=== PATIENT | male | born 1960 | race Two or more races ===

== ENCOUNTER → 2021-11-16 14:40 | Outpatient (BNVA) | payer OTHER, SELFPAY | PROVIDERS: Visit Provider Internal Medicine | DX: M25.462 Effusion, left knee (principal) | CPT/HCPCS: 99202 ==

== ENCOUNTER → 2021-12-19 10:35 | Outpatient (BNVA) | payer OTHER, SELFPAY | PROVIDERS: Visit Provider Internal Medicine | DX: M25.462 Effusion, left knee (principal) | CPT/HCPCS: 99212 ==

== ENCOUNTER 2025-02-18 12:45 | Outpatient (REF) | payer MEDICAID, SELFPAY ==
[2025-02-18 14:03] LABS: Hematocrit 38.8 % (42.0-52.0); Hemoglobin 12.8 g/dl (14.0-18.0); Mean Corpuscular Hemoglobin 28.6 pg (27.0-33.0); Mean Corpuscular Volume 86.6 fL (80.0-98.0); Mean Platelet Volume 9.9 fL (9.4-12.4); Platelet Count 158 X10*3/uL (160-400); Red Blood Count 4.48 X10*6/uL (4.60-5.80); Red Cell Distribution Width 16.4 % (11.0-16.0); White Blood Count 6.5 X10*3/uL (4.8-10.8)
[2025-02-18 14:51] LABS: Alanine Aminotransferase 21 U/L (0-40); Albumin Level 4.3 g/dL (3.5-5.0); Alkaline Phosphatase 88 U/L (39-117); Anion Gap 11 (12-20); Aspartate Amino Transferase 17 U/L (5-37); Bilirubin Total 0.5 mg/dL (0.0-1.0); Blood Urea Nitrogen 12 mg/dL (9-16); Calcium 9.4 mg/dL (8.4-10.2); Carbon Dioxide 27 mmol/L (22-29); Chloride 107 mmol/L (96-108); Estimated Glomerular Filt Rate 59; Glucose Random 259 mg/dL (60-115); Iron 36 mcg/dL (45-160); Percent Iron Saturation 12 % (15-50); Potassium 4.6 mmol/L (3.3-5.1); Sodium 140 mmol/L (135-145); Total Iron Binding Capacity 301 mcg/dL (228-428); Total Protein 7.4 g/dL (6.5-8.0); Unsaturated Iron Binding 265 ug/dL
[2025-02-18 14:56] LABS: Ferritin 5 ng/mL (20-250)
[2025-02-18 15:04] LABS: Folate 14.9 ng/mL (> or = 4.0); Vitamin B12 262 pg/mL (200-900)
== END 2025-02-18 12:46 | disposition home or self-care (01) ==
LOC: HO.LAB 12:45
PROVIDERS: PCP Physician Assistant; Visit Provider Internal Medicine
DX: D64.9 Anemia, unspecified (principal); R10.9 Unspecified abdominal pain; C25.9 Malignant neoplasm of pancreas, unspecified; C78.7 Secondary malignant neoplasm of liver and intrahepatic bile duct
CPT/HCPCS: 36415; 80053; 82607; 82728; 82746; 83540; 85027; 99202

== ENCOUNTER 2025-02-18 12:45 | Outpatient (AMB) | payer MEDICAID, SELFPAY ==
--- NOTE | 2025-02-18 12:52 | A.OFFVIS_ITS ---
Vital Signs 02/18/25 12:58 Height 5 ft 6 in Weight 123 lb 7.342 oz BMI 19.9 BP 109/77 Blood Pressure Location Lt brachial Position Sitting Pulse 86 Intake Visit Reasons: Pancreas Cancer r/s 02/02/25 Intake Note: Dylon presents in the office as a new patient for Pancreatic Cancer. CC: He states that he is having pains in the stomach. Denies other GI symptoms. Pains in the middle of the abdomen. Building Equipment Operator Required: Yes Building Equipment Operator Name: [id number] Allergies No Known Allergies Allergy (Verified 02/18/25 13:01) Medication List - Last Reconciled 02/18/25 by Geneva Bell MD allopurinol 100 mg PO DAILY atorvastatin 20 mg PO BEDTIME buspirone 10 mg PO BID doxycycline monohydrate 100 mg PO BID 30 days glipizide ER 10 mg PO QAM hydrochlorothiazide 25 mg PO Q OTHER DAY lisinopril 40 mg PO DAILY naltrexone 50 mg PO QAM nifedipine ER 30 mg PO DAILY olmesartan 20 mg PO QAM omeprazole 40 mg PO DAILY sitagliptin phosphate (Januvia) 100 mg PO QAM thiamine mononitrate (vit B1) mg PO HPI Comments Details: 64 y.o M with PMH of metastatic pancreatic ca 12/[address] Case, who has been referred to our office of abd pain and melena. Pt reports burning abd pain that started almost 2 months ago. Intermittent. Not related to food but does note decreased appetite. No N/V. No diarrhea. Stools dark but unsure if from PO iron. Labs reviewed with mild anemia and iron deficiency - ferritin of 4. [place] 07/2024 (Dr Golden) Good prep. 5 mm cecal polyp. Diverticulosis. States the reason to seek referral here was he was not able to get an early date for EGD at [facility]. Labs and imaging reviewed. Also has likely metastatic liver lesions as well as mild CBD obstruction from mass effect. LFTs normal 01/2025. Pt says is switching therapy and will be re-imaged in 2 months - plan for procedure if size of lesion/mass effect not improved. He is also being seen at [facility] and [facility] as second opinion for panc adenoca. [facility] Medical History Gout Hypertension Swelling of knee joint, left Review of Systems Const All systems reviewed & are unremarkable except as noted in HPI and below Physical Exam Vital Signs: Last Vital Signs Pulse 86 02/18/25 12:58 BP 109/77 02/18/25 12:58 BMI result Body Mass Index 19.9 No apparent distress, undernourished Nonicteric Abdomen soft, nondistended Alert and oriented x3, normal gait Flat effect Assessment & Plan Assessment & Plan (1) Abdominal pain: Code(s): R10.9 - Unspecified abdominal pain Category: Medical (2) Anemia: Code(s): D64.9 - Anemia, unspecified Category: Medical (3) Pancreatic adenocarcinoma: Code(s): C25.9 - Malignant neoplasm of pancreas, unspecified Category: Medical (4) Metastasis to liver: Code(s): C78.7 - Secondary malignant neoplasm of liver and intrahepatic bile duct Category: Medical Plan Ddx include PUD, gastritis, duodenitis, AVMs. Omeprazole on med list but pt has not been taking this. Madbury done < 6 months ago without any pathology. Plan: - Reviewed use of omeprazole daily - Updated CBC. Will also check LFTs to r/o obstruction - EGD to be booked Follow up after egd Orders: Orders Complete Blood Count no Diff Today D64.9 - Anemia, unspecified Comprehensive Met. Panel Today D64.9 - Anemia, unspecified Coding Level of Care Code New Pt Level 4 (30726) Diagnoses Abdominal pain R10.9 Anemia D64.9 Pancreatic adenocarcinoma C25.9 Metastasis to liver C78.7
[2025-02-18 12:58] VITALS: BP 109/77; PULSE 86; BMI 19.9
--- OUTSIDE RECORDS SUMMARY | 2025-02-18 15:06 | XMS_ITS | Encounter Summary ---
Author Organization [employer] [facility] Address [address] [place] [address] [address] [place] [address] Care Team Providers Care Environmental Aide Name Role Phone Unavailable Primary Care Provider Unavailabl e Encounter Details Date Type Department Care Team (Latest Contact Info) Description 06/15/2019 Abstract [facility] CONVERSIONS Dental, Provider, DDS Social History Tobacco Use Types Packs/Day Years Used Date Smoking Tobacco: Never Assessed Sex and Gender Information Value Date Recorded Sex Assigned at Male 09/30/2022 10:23 AM EDT Legal Sex Male 10:23 AM EDT Gender Identity Male 09/30/2022 10:23 AM EDT Sexual Orientation Choose not to disclose 2021 10:23 AM EDT documented as of this encounter Plan of Treatment Not on file documented as of this encounter Visit Diagnoses Not on filedocumented in this encounter
--- OUTSIDE RECORDS SUMMARY | 2025-02-18 15:06 | XMS_ITS | Encounter Summary ---
Author Organization [facility] Address [address] [place] [address] Care Team Providers Care Back Gray Cloth Washer Name Role Phone Deneen Beltran PA-C Primary Care Provider [phone] Reason for Visit * Reason Comments Care Coordination [id number] Visit Encounter Details Date Type Department Care Team ([facility] Contact Info) Description 04/29/2024 Interim Notes Caring [facility] [address] [place] [phone] Katherine Falk [address] [place] [address] Social History Tobacco Use Types Packs/Day Years Used Date Smoking Tobacco: Former Smokeless Tobacco: Never Alcohol Use Standard Drinks/Week Comments Yes 6 (1 standard drink = 0.6 oz pur e alcohol) beer only. daily about 5-6 Social Connections Answer Date Recorded Connectedness 1 04/30/2024 Financial Resource Strain Answer Date R ecorded Financial Resource Strain 1 2023 Stress Answer Date Recorded Stress 1 04/30/2024 Physical Activity Answer Date Recorded Physical Activity 0 07/24/2019 Food Insecurity Answer Date Recorded Food 1 04/30/2024 Transportation Needs Answer Date Record ed Transportation 1 04/30/2024 Housing Stability Answer Date Recorded Housing 1 04/30/2024 Safety and Environment Answer Date Richy rded Safety 0 07/24/2019 Utilities Answer Date Recorded Utilities 1 04/30/2024 Employment Answer Date Recorded Stress 0 02/18/2022 Sex and Gender Information Value Date Recorded Sex Assigned at Male 09/11/2017 1:35 PM PDT Legal Sex Male 11:36 AM PDT Gender Identity Male 09/11/2017 1:35 PM PDT Sexual Orientation Straight 09/11/2017 1: 35 PM PDT COVID-19 Exposure Response Date Recorded In the last 10 days, have yo u been in contact with someone who was confirmed or suspected to have Coronavirus/COVID-19? No / Unsure 04/29/2024 2:31 PM EDT documented as of this encounter Plan of Treatment Upcoming Encounters Date Type Department Care Team (Late st Contact Info) Description 03/23/2025 2:40 PM EDT Office Visit [facility] [address] [place] [address] Baron Ling, PharmD [address] [place] [address] 04/19/2025 1:40 PM EDT Office Visit [facility] [address] Dental [address] [place] [phone] Damien Guadalupe, RD [address] [place] [address] documented as of this encounter Goals Goal Patient Goal Type Associated Problems Recent Progress Patient-Stated? Author Blood Pressure < 130/80 Blood Pressure 100/70(2024 2:43 PM EST) No Baron Ling PharmD Exercise 3x per week (30 min per time) Exercise Not on track( 023 1:08 PM PDT) No Baron Ling PharmD Hypertension: Check BP regularly (@home or in office) General On track( 023 1:08 PM PDT) No Baron Ling PharmD Note: 3x/week documented as of this encounter Visit Diagnoses Not on filedocumented in this encounter Additional Health Concerns Assessment Noted Time PHQ-9 Depression Total Score: 0 01/28/20 24 2:59 PM PST documented as of this encounter Care Teams Back Gray Cloth Washer Relationship Specialty Start Date End Date Deneen Beltran PA-C [address] [place] [address] PCP - General Internal Medicine 11/03/23 documented as of this encounter
--- OUTSIDE RECORDS SUMMARY | 2025-02-18 15:06 | XMS_ITS | Clinical Summary ---
Author Organization [employer] [facility] Address [address] [place] [address] 7 [place] [address] Care Team Providers Care Personal Carer Name Role Phone Unavailable Primary Care Provider Unavailabl e Social History Tobacco Use Types Packs/Day Years Used Date Smoking Tobacco: Never Assessed Sex and Gender Information Value Date Recorded Sex Assigned at Male 09/30/2022 10:23 AM EDT Legal Sex Male 10:23 AM EDT Gender Identity Male 09/30/2022 10:23 AM EDT Sexual Orientation Choose not to disclose 2021 10:23 AM EDT Last Filed Vital Signs Vital Sign Reading Time Taken Comments Blood Pressure 118/65 12/23/2019 12:01 AM EST Pulse 70 12/23/2019 12:01 AM EST Temperature - - Respiratory Rate - - Oxygen Saturation - - Inhaled Oxygen Concentration - - Weight - - Height - - Body Mass Index - - Plan of Treatment Health Maintenance Due Date Last Done Comments CT Colonography 1962 Colonoscopy 1962 Colorectal Cancer Screening 1962 Depression Screening 1962 FIT DNA/Cologuard 1962 FIT 1962 FOBT 1962 Lipid Panel 1962 Sigmoidoscopy 1962 Alcohol/Substance Use Screening 1974 Tobacco Screening 1974 DTaP/Tdap/Td Vaccines (1 - Tdap) 1981 Pneumococcal Vaccine: 50+ Ye ars (1 of 1 - PCV) 2012 Zoster Vaccines (1 of 2) 2012 COVID-19 Vaccine ( - 2023-2 5 season) 2024 Influenza Vaccine (#1) 2024 RSV Patients and Pa tients Aged 60 years or older (1 - 1-dose 75+ series) 2037 HIB Vaccines Aged Out No longer eligi ble based on patient's age to complete this topic HPV Vaccines Aged Out No longer eligi ble based on patient's age to complete this topic Hepatitis A Vaccines Aged Out No long er eligible based on patient's age to complete this topic Hepatitis B Vaccines Aged Out No long er eligible based on patient's age to complete this topic IPV Vaccines Aged Out No longer eligi ble based on patient's age to complete this topic Meningococcal Vaccine Aged Out No jovanna edmond eligible based on patient's age to complete this topic Pneumococcal Vaccine: Pediat rics (0 to 5 Years) and At-Risk Patients (6 to 49) Years) Aged Out No longer eligible b ased on patient's age to complete this topic RSV under 20 months Aged Out No longe r eligible based on patient's age to complete this topic Rotavirus Vaccines Aged Out No longer eligible based on patient's age to complete this topic
--- OUTSIDE RECORDS SUMMARY | 2025-02-18 15:06 | XMS_ITS | Encounter Summary ---
Author Organization [facility] Address [address] [place] [address] Care Team Providers Care Oleo Hasher And Renderer Name Role Phone Deneen Beltran PA-C Primary Care Provid er Encounter Details Date Type Department Care Team Description 08/20/2024 Social Work [facility] Oncology Services [address] [place] [address] Shaylee Perez [facility] Social History Tobacco Use Types Packs/Day Years Used Date Smoking Tobacco: Never Smokeless Tobacco: Never Alcohol Use Standard Drinks/Week Comments Never 0 (1 standard drink = 0.6 oz pur e alcohol) Sex and Gender Information Value Date Recorded Sex Assigned at Male 04/06/2024 10:23 AM EDT Gender Identity Not on file Sexual Orientation Not on file Job Start Date Occupation Industry Not on file Not on file Not on file documented as of this encounter Plan of Treatment Not on file documented as of this encounter Visit Diagnoses Not on filedocumented in this encounter Care Teams Oleo Hasher And Renderer Relationship Specialty Start Date End Date Deneen Beltran PA-C [address] [place] [phone] PCP - General Physician Seaming Machine Operator 12/17/23 documented as of this encounter
--- OUTSIDE RECORDS SUMMARY | 2025-02-18 15:06 | XMS_ITS | Encounter Summary ---
Author Organization [facility] Address [address] [place] [address] Care Team Providers Care Bench Worker Apprentice Name Role Phone Deneen Beltran PA-C Primary Care Provider + [phone] Reason for Visit * Reason Comments Medication Issues Encounter Details Date Type Department Care Team ([facility] st Contact Info) Description 03/17/2020 Interim Notes [address] [phone] [address] Social History Tobacco Use Types Packs/Day Years Used Date Smoking Tobacco: Former Smokeless Tobacco: Never Alcohol Use Standard Drinks/Week Comments Yes 6 (1 standard drink = 0.6 oz pur e alcohol) beer only. daily about 5-6 Social Connections Answer Date Recorded Social Connections and Isolation 0 07/24/2019 Financial Resource Strain Answer Date R ecorded Financial Resource Strain 0 2018 Stress Answer Date Recorded Stress 0 07/24/2019 Physical Activity Answer Date Recorded Physical Activity 0 07/24/2019 Food Insecurity Answer Date Recorded Food 0 07/24/2019 Transportation Needs Answer Date Record ed Transportation 0 07/24/2019 Housing Stability Answer Date Recorded Housing 0 07/24/2019 Safety and Environment Answer Date Richy rded Safety 0 07/24/2019 Utilities Answer Date Recorded Utilities 0 07/24/2019 Employment Answer Date Recorded Employment 0 07/24/2019 Sex and Gender Information Value Date Recorded Sex Assigned at Male 09/11/2017 1:35 PM PDT Legal Sex Male 11:36 AM PDT Gender Identity Male 09/11/2017 1:35 PM PDT Sexual Orientation Straight 09/11/2017 1: 35 PM PDT documented as of this encounter Plan of Treatment Upcoming Encounters Date Type Department Care Team (Late st Contact Info) Description 03/23/2025 2:40 PM EDT Office Visit [facility] [address] [place] [address] Baron Ling PharmD [address] [place] [address] 04/19/2025 1:40 PM EDT Office Visit [facility] [address] Dental [address] [place] [phone] Damien Guadalupe, RD [address] [place] [address] documented as of this encounter Visit Diagnoses Not on filedocumented in this encounter Care Teams Bench Worker Apprentice Relationship Specialty Start Date End Date Deneen Beltran PA-C [address] [place] [address] PCP - General Internal Medicine 11/03/23 documented as of this encounter
--- OUTSIDE RECORDS SUMMARY | 2025-02-18 15:06 | XMS_ITS | Encounter Summary ---
Author Organization [facility] Address [address] [place] [address] Care Team Providers Care Plastics Seasoner Operator Name Role Phone Deneen Beltran PA-C Primary Care Provider + [phone] Reason for Visit * Reason Comments Follow Up Encounter Details Date Type Department Care Team ([facility] st Contact Info) Description 02/02/2025 2:40 PM EST Office Visit [facility] [address] [place] [address] Deneen Beltran PA-C [address] [place] [address] Type 2 diabetes mellitus with hyperglycemia, with long-term current use of insulin (HCC-CMS) (Primary Dx); Essential hypertension; Elevated liver enzymes; Malignant neoplasm of pancreas, unspecified location of malignancy (HCC-CMS) Social History Tobacco Use Types Packs/Day Years Used Date Smoking Tobacco: Former Smokeless Tobacco: Never Tobacco Cessation:Counseling Given: Not Answered Alcohol Use Standard Drinks/Week Comments Yes 6 [...] PM PDT documented as of this encounter Last Filed Vital Signs Vital Sign Reading Time Taken Comments Blood Pressure 100/70 02/02/2025 2:43 PM EST Pulse 79 02/02/2025 2:43 PM EST Temperature 36.6 ??C (97.9 ??F) 02/02/2025 2:43 PM ES T Respiratory Rate 16 02/02/2025 2:43 PM EST Oxygen Saturation - - Inhaled Oxygen Concentration - - Weight 57.8 kg (127 lb 8 oz) 02/02/2025 2:43 PM EST Height 165.1 cm (5' 5 ) 02/02/2025 2:43 PM EST Body Mass Index 21.22 02/02/2025 2:43 PM EST documented in this encounter Progress Notes * Deneen Beltran PA-C - 02/02/2025 2:52 PM EST Dylon Lin is a 64 year old male who presents for HTN/ DM follow up Subjective: Dylon Lin is a 64 year old male with a history of the following medical problems: Patient Active Problem List Diagnosis Essential hypertension H/O: gout ED (erectile dysfunction) Left knee pain Hyperlipidemia LDL goal <100 Diverticulosis of colon H/O ETOH abuse Acquired hallux valgus of left foot Eosinophilia Normal findings on CTA chest 05/2014 at [facility] Left elbow trauma 01/15/15 ? fracture distal humeral articular surface or coronoid process of ulna Laceration of right thumb Type 2 diabetes mellitus with hyperglycemia, with long-term current use of insulin ([facility]) Mild peripheral polyneuropathy Gouty arthritis Alcohol abuse, daily use Pancreatic mass Elevated liver enzymes HPI Dylon Lin is at this visit with his . Reported doing ok. He has been eating and drinking. Goodappetite. He was presenting some nausea after he started the new medication that was prescribed by oncologist for 14 days. He is feeling better now. He has been seeing Dr. Hicks -oncology at [facility], Garrick Bagley MD primary oncology and also Mary Kate Stewart MD winch runner at [facility] due to thyroid nodule. The fine needle aspiration biopsy of the 0.9 cm left upper pole nodule revealed findings characterized as atypia of undetermined significance. Per [facility] record: Diagnosis/treatment: Locally advanced pancreatic neuroendocrine cancer, diagnosed in 12/2023. He started FOLFIRINOX on 03/09/2024. We dose-reduce the oxaliplatin and irinotecan by 20% with cycle 3 on 04/07/2024. We discontinued FOLFIRINOX following cycle 3 due to GI toxicities. He started gemcitabine/Abraxane with a 20% dose reduction on 05/13/2024. He progressed with liver metastases in 10/2024. He started Xeloda/Temodar on 11/25/2024. Patient continues seeing Baron Ling at DM clinic. He continus with Farxiga 10 mg, Januvia 100 mg and Glipizide 10 mg daily. He also continues Olmesartan mg daily. Depression Screen: 02/02/2025 2:42 PM Little interest or pleasure in doing things Not at all Feeling down, depressed or hopeless [include irritable if under 18] Not at all Trouble falling or staying asleep, or sleeping too much Not at all Feeling tired or having little energy Not at all Poor appetite or overeating Not at all Feeling bad about yourself - or that you are a failure or have let yourself or your family down Notat all Trouble concentrating on things like school work, reading or watching TV? Not at all Moving or speaking so slowly that other people could have noticed? Or the opposite - being so fidgety or restless that you have been moving around a lot more than usual Not at all Thoughts you would be better off or of hurting yourself in some way Not at all If you checked off any problems, how difficult have these problems made it for you to do your work,take care of things at home, or get along with other people? Not difficult at all PHQ-9 Total Score (Auto Calculated) 0 Depression Severity: None-minimal ROS: Review of Systems All other systems reviewed and are negative. Vitals: Vitals: 02/02/25 1443 BP: 100/70 BP Site: Left Arm BP Position: Sitting BP Cuff Size: Regular Adult Pulse: 79 Resp: 16 Temp: 97.9 ??F (36.6 ??C) TempSrc: Oral Weight: 127 lb 8 oz (57.8 kg) Height: 5' 5 (1.651 m) Estimated body mass index is 21.22 kg/m?? as calculated from the following: Height as of this encounter: 5' 5 (1.651 m). Weight as of this encounter: 127 lb 8 oz (57.8 kg). Facility age limit for growth %daniele is 20 years. Lab Results Component Value Date NA 136 08/18/2024 K 5.0 08/18/2024 CHLORIDE 103 08/18/2024 CO2 29 08/18/2024 CALCIUM 9.5 08/18/2024 BUN 17 08/18/2024 BUNCREAT SEE NOTE: 08/18/2024 EGFR 68 08/18/2024 CREATININE 1.20 08/18/2024 PROTEIN 7.5 04/30/2024 ALBUMIN 4.6 04/30/2024 GLOBULIN 2.9 04/30/2024 AGRATIO 1.6 04/30/2024 AST 21 04/30/2024 ALT 36 04/30/2024 ALKPHOS 159 (H) 04/30/2024 BILIRUBIN 0.3 04/30/2024 GLUCOSE 145 (A) 11/18/2024 Lab Results Component Value Date WBC 6.5 11/13/2023 NEUTROPHILS 2,789 11/13/2023 LYMPHOCYTES 2,334 11/13/2023 RBC 5.32 11/13/2023 HGB 15.3 11/13/2023 HCT 46.3 11/13/2023 MCV 87.0 11/13/2023 MCH 28.8 11/13/2023 MCHC 33.0 11/13/2023 RDW 12.4 11/13/2023 PLATELETS 309 11/13/2023 MPV 9.9 11/13/2023 MONOCYTES 559 11/13/2023 EOSINOPHILS 748 (H) 11/13/2023 BASOPHILS 72 11/13/2023 Lab Results Component Value Date HGBA1C 7.8 (H) 11/17/2024 HGBA1C 7.6 (H) 08/18/2024 HGBA1C 11.0 (H) 04/30/2024 Physical Exam: Physical Exam Vitals reviewed. Cardiovascular: Rate and Rhythm: Normal rate and regular rhythm. Pulses: Normal pulses. Heart sounds: Normal heart sounds. Pulmonary: Effort: Pulmonary effort is normal. Breath sounds: Normal breath sounds. Abdominal: General: Bowel sounds are normal. Neurological: Mental Status: He is alert. Psychiatric: Mood and Affect: Mood normal. Assessment/Plan: E11.65,Z79.4 Type 2 diabetes mellitus with hyperglycemia, with long-term current use of insulin ([facility]) (primary encounter diagnosis) I10 Essential hypertension R74.8 Elevated liver enzymes C25.9 Malignant neoplasm of pancreas, unspecified location of malignancy ([facility]) -No changes were made to his medications. -Advised to continue following up with oncologist and winch runner. Return in about 3 months (around 05/05/2025) for CPE. documented in this encounter Miscellaneous Notes * Patient Instructions - Deneen Beltran PA-C - 02/02/2025 3:04 PM EST If you are not able to keep your appointment please call 24-48 hours before your appointment to cancel or reschedule. documented in this encounter Plan of Treatment Upcoming Encounters Date Type Department Care Team (Late st Contact Info) Description 03/23/2025 2:40 PM EDT Office Visit [address] [place] [phone] Baron Ling PharmD [address] [place] [address] 04/19/2025 1:40 PM EDT Office Visit [facility] [address] [place] [phone] Damien Guadalupe, [facility] [address] [place] [address] documented as of this encounter Goals Goal [...] documented as of this encounter Visit Diagnoses Diagnosis Type 2 diabetes mellitus with hyperglycemia, with long-term current use of insulin ([facility])- Primary Essential hypertension Elevated liver enzymes Other nonspecific abnormal serum enzyme levels Malignant neoplasm of pancreas, unspecified location of malignancy ([facility]) documented in this encounter Additional Health Concerns Assessment Noted Time PHQ-9 Depression Total Score: 0 02/03/20 25 2:42 PM PST documented as of this encounter Care Teams Plastics Seasoner Operator Relationship Specialty Start Date End Date Deneen Beltran PA-C [address] [place] [address] PCP - General Internal Medicine 11/03/23 documented as of this encounter
--- OUTSIDE RECORDS SUMMARY | 2025-02-18 15:06 | XMS_ITS | Encounter Summary ---
Author Organization [employer] [facility] Address [address] [place] [address] [address] [place] [address] Care Team Providers Care Gui Developer Name Role Phone Unavailable Primary Care Provider Unavailabl e Encounter Details Date Type Department Care Team (Latest Contact Info) Description 12/20/2020 Abstract C CONVERSIONS Dental, Provider, DDS Social History Tobacco [...]
--- OUTSIDE RECORDS SUMMARY | 2025-02-18 15:07 | XMS_ITS ---
Author Organization [facility] Address [address] [place] [id number] Care Team Providers Care Racecourse Barrier Attendant Name Role Phone Deneen Beltran PA-C Primary Care Provid er Active Problems Problem Noted Date Diagnosed Date Malignant neoplasm of head of pancreas Current Oncology Plans [facility] BCN OP GEMCITABINE / ALBUMIN-BOUND PACLITAXEL (4 HRS)* Plan Start Date: 05/12/2024 Plan Provider:Kurt Case MD Linked Problems Malignant neoplasm of head o f pancreas (HCC) Treatment Medications Current Day (Day 1 , Cycle 6 - Planned for 10/07/2024) Next Day (Day 8, Cycle 6 - Planned for 10/14/2024) albuterol (PROVENTIL)dexamethasone (DECADRON) DOSE > 10 mg IVPBdexamethasone sod phosphate PF (DECADRON)diphenhydrAMINE (BENADRYL)EPINEPHrinefamotidi ne (PF) (PEPCID)gemcitabine (GEMZAR) chemo infusionhydrocortisone (SOLU-CORTEF) IVondansetron (ZOFRAN)PACLitaxel-protein boundprochlorperazine (COMPAZINE)Saline Flush 0.9 %sodium chloride (NS) 0.9 %sodium chloride 0.9% bolus (NS) albuterol (PROVENTIL) nebulizer solution 2.5 mgdexamethasone sod phosphate PF (DECADRON) injection 10 mgdiphenhydrAMINE (BENADRYL) injection 50 mgEPINEPHrine (Anaphylaxis) (ADRENALIN) 1 mg/ml (1:1000) inj amp/vial 0.3 mgfamotidine (PEPCID) 20 mg in water for injection, sterile 5 mL Injectiongemcitabine HCl (GEMZAR) 1,255 mg in sodium chloride (NS) 0.9 % 250 mL chemo infusionhydrocortisone sodium succinate (Solu-CORTEF) injection (PF) 100 mgondansetron (ZOFRAN) injection 8 mgPACLitaxel-protein bound chemo infusion 130 mgSaline Flush 0.9 % injection 1 Syringesodium chloride 0.9% (NS) infusionsodium chloride 0.9% bolus (NS) 500 mL albuterol (PROVENTIL) nebulizer solution 2.5 mgdexamethasone sod phosphate PF (DECADRON) injection 10 mgdiphenhydrAMINE (BENADRYL) injection 50 mgEPINEPHrine (Anaphylaxis) (ADRENALIN) 1 mg/ml (1:1000) inj amp/vial 0.3 mgfamotidine (PEPCID) 20 mg in water for injection, sterile 5 mL Injectiongemcitabine HCl (GEMZAR) 1,255 mg in sodium chloride (NS) 0.9 % 250 mL chemo infusionhydrocortisone sodium succinate (Solu-CORTEF) injection (PF) 100 mgondansetron (ZOFRAN) injection 8 mgPACLitaxel-protein bound chemo infusion 130 mgSaline Flush 0.9 % injection 1 Syringesodium chloride 0.9% (NS) infusionsodium chloride 0.9% bolus (NS) 500 mL Past Plans ONCOLOGY TREATMENT Plan Name Start Date Discontinue Date Treatment Medications Discontinue Reason Plan Provider Cycles [facility] BCN OP MODIFIED FOLFIRINOX 4 04/23/2024 albuterol (PROVENTIL)atropinedexam ethasone (DECADRON) DOSE > 10 mg IVPBdexamethasone sod phosphate PF (DECADRON)dextrose 5 %diphenhydrAMINE (BENADRYL)EPINEPHrinefam otidine (PF) (PEPCID)fluorouracil (5 FU) 46 Hr Chemo infusion- Home Usefluorouracil (ADRUCIL)fosaprepitant IV Piggybackhydrocortisone (SOLU-CORTEF) IVirinotecan (CAMPTOSAR) chemo infusionleucovorin (WELLCOVORIN) infusionloperamide (IMODIUM) 2 MGmeperidine (DEMEROL) 25 MG/MLoxaliplatin (ELOXATIN) chemo infusionpalonosetron (ALOXI)prochlorperazine (COMPAZINE)Saline Flush 0.9 %sodium chloride (NS) 0.9 %sodium chloride 0.9% bolus (NS) Not Tolerated Kurt Case MD 3 of 12 cycles started Radiation Treatments * No radiation treatments are documented for this patient in [facility]. Treatments may have been administered in another system.
--- OUTSIDE RECORDS SUMMARY | 2025-02-18 15:07 | XMS_ITS | Encounter Summary ---
Author Organization [facility] Address [address] [place] [address] Care Team Providers Care Ceramic Restorer Name Role Phone Deneen Beltran Primary Care Provider Encounter Details Date Type Department Care Team (Late st Contact Info) Description 09/28/2024 8:59 AM EDT Hospital Encounter TH HISTORIC ENCOUNTERS EASTERN CONVERSION ONLY Kurt Case MD [address] [place] [phone] Social History Tobacco Use Types Packs/Day Years Used Date Smoking Tobacco: Never Smokeless Tobacco: Never Alcohol Use Standard Drinks/Week Comments Never 0 (1 standard drink = 0.6 oz pur e alcohol) Sex and Gender Information Value Date Recorded Sex Assigned at Male 12/04/2024 5:23 PM EST Legal Sex Male 11:45 PM EST Gender Identity Male 12/04/2024 5:23 PM EST Sexual Orientation Straight 12/04/2024 5: 23 PM EST documented as of this encounter Last Filed Vital Signs Vital Sign Reading Time Taken Comments Blood Pressure 107/64 09/28/2024 9:49 AM EDT Sitting Left arm Pulse 80 09/28/2024 9:49 AM EDT Temperature - - Respiratory Rate - - Oxygen Saturation - - Inhaled Oxygen Concentration - - Weight 57.2 kg (126 lb) 09/28/2024 9:49 AM EDT Height 163.8 cm (5' 4.5 ) 09/02/2024 9: 50 AM EDT Body Mass Index 21.29 09/02/2024 9:50 AM EDT documented in this encounter Progress Notes * Kurt Case MD - 09/28/2024 9:45 AM EDT Diagnosis/treatment: Locally advanced pancreatic cancer, diagnosed in 12/2023. He started FOLFIRINOX on 03/09/2024. We dose-reduce the oxaliplatin and irinotecan by 20% with cycle 3 on 04/07/2024. We discontinued FOLFIRINOX following cycle 3 due to GI toxicities. He started gemcitabine/Abraxane with a 20% dose reduction on05/13/2024. Interval history: The patient is a 64-year-old alcohol abusing gentleman who underwent routine laboratory screening on 11/13/2023 which revealed LFTs with a total bilirubin 0.4, AST 44, ALT 67, and alkaline phosphatase 143. A hepatitis A/B/C panel on 11/17/2023 was unremarkable. A liver ultrasound on 12/03/2023 showeda 8.7 x 5.0 x 4.6 cm heterogeneously hypoechoic vascular mass in the region of the pancreatic head.An abdominal MRI with contrast 12/12/2023 showed a 8.0 x 5.5 x 9.0 cm heterogeneous enhancing pancreatic head mass with mass effect on the adjacent biliary tree with upstream pancreatic ductal dilatation and pancreatic atrophy. There is no encasement of the celiac artery or SMA. The mass displaces the splenoportal confluence medially. There was no intra-abdominal lymphadenopathy. He underwent an EGD/EUS on 12/19/[address] Oliva and a 5 x 6 cm hypoechoic heterogeneous pancreatic head mass was seen and an FNA was obtained and the cytology revealed a pancreatic neoplasm with morphology containing both acinar and neuroendocrine differentiation, trypsin-positive, synaptophysin-positive, chromogranin A-negative, YCS-S-syupqmls, and [id number]. Marked dilatation of the common bile duct andpancreatic duct was seen. Atrophic pancreatic parenchyma was seen in the body and tail. A 1.5 cm duodenal (D3) ulcerative mass was seen (concerning for local extension of the pancreatic tumor into the duodenum) and an FNA was taken which revealed an ulcer base, granulation tissue, and reactive duodenal mucosa. No regional lymphadenopathy was seen. A PET/CT in 12/29/2023 showed uptake in the pancreatic head mass with SUV 25.1 and no uptake in other sites. An abdominal CT with IV contrast and without oral contrast on 02/03/2024 showed an enlarging 7.6 x 5.2 cm pancreatic head/uncinate process mass with close contact with the SMV without narrowing and with abutment of the right with margin of the descending SMA without encasement or narrowing. He initially tolerated FOLFIRINOX reasonably well. He reported moderate fatigue and moderate asthenia. He reported anorexia. He reported nausea cycle 1 day 1, which resolved. He took ondansetron withpartial relief. He reported constipation x 1 day, which resolved without intervention. He had difficulty with FOLFIRINOX cycle 2. He reported moderate fatigue and moderate asthenia. He reported anorexia. He developed nausea x 6 days during week 1, partially relieved by ondansetron. He presented to the [facility] ER on 03/31/2024 for cycle on cycle 2-day 8 with poorly controlled nausea. He received IV hydration. He received ondansetron 4 mg IV with partial relief. He developed GERD symptoms and epigastric pain, which persist. An A/P CT with IV contrast and without oral contrast on 03/31/2024 showed no significant change in the 8.1 x 5.4 cm large pancreatic head mass. We dose-reduced the oxaliplatin and irinotecan by 20% with cycle 3. He again had difficulty with toxicities. He reports moderate fatigue and moderate asthenia, which resolved off chemotherapy. He reported anorexia. He lost weight from 123 pounds on 04/05/2024 down to 117 pounds on 04/20/2024. He developed nausea, partially relieved by ondansetron and partially relieved by Compazine, which persisted throughout the cycle, which resolved off chemotherapy. He developed epigastric pain, not relieved by Prilosec, which resolved off chemotherapy. He took oxycodone 5 mg as needed with partial relief. LFTs on 04/19/2024 showed total bilirubin 0.3, AST 96, ALT 142, and alkaline phosphatase 399. LFTs on 05/07/2024 were normal. We discontinued FOLFIRINOX following cycle 3 due to GI toxicities. The fatigue and asthenia resolved. The anorexia resolved. He regained weight over the last interval. The nausea resolved. The epigastric pain resolved. We delayed chemotherapy by 6 weeks following cycle 3 of FOLFIRINOX to allow continued recovery. A chest CT with contrast on 05/05/2024 was unremarkable. He is tolerating gemcitabine/Abraxane reasonably well. He reported intermittent mild dizziness. I instructed him to aggressively drink orally and the dizziness resolved. He reports intermittent dysuria starting late 05/2024, which resolved. A UA on 07/07/2024 was negativefor leukocyte esterase and nitrates. He reports an intact appetite. His weight was stable over the last interval. He reported intermittent mild epigastric/right upper quadrant abdominal pain, not requiring analgesics, which resolved. A C/A/P CT with IV contrast and without oral contrast on 08/23/2024 showed a stable 10.0 x 5.4 cm pancreatic head mass and otherwise stable findings. DPYD genetic testing showed no relevant mutations. He reports pleuritic right anterolateral lower thoracic/right upper quadrant abdominal pain since early 08/2024. He denies headaches or visual changes. He denies cough, hemoptysis, dyspnea exertion. He denies unusual bone pain. He has a mild peripheral polyneuropathy. Past medical history: Diabetes, peripheral polyneuropathy, hypertension, gout, depression. Current medications: Glipizide, Januvia, Lipitor, vitamin D, allopurinol, thiamine, OLMESARTAN, nifedipine, folic acid, colchicine. Allergies: Metformin, empagliflozin. Family history: His maternal grandmother was diagnosed with stomach cancer and in her 70s from a cancer. His parents had no history of cancer. His 2 brothers and 4 sisters have no history of cancer. His 2 daughters and 1 son have no history of cancer. Social history: He is currently unemployed and formerly worked in [employer]. He is . He has 2 daughters and 1 son. Has 4 grandchildren. He is a former smoker who quit in his early 30s. He admits heavy alcohol use. Review of systems: The remainder of a 10 point review of systems was unremarkable. Physical examination: HEENT: Sclerae anicteric, normal oropharyngeal membrane. Neck: No lymphadenopathy. Lungs: Clear to auscultation. Heart: No murmurs. Abdomen: Soft, nontender, no organomegaly or masses. Extremities: No edema. Skin: No rash. Neurologic: Normal gait. Assessment/plan: The patient is a 64-year-old gentleman who presented in 12/2023 with a locally advanced pancreatic cancer with morphology and IHCs demonstrating both acinar and neuroendocrine differentiation. He was evaluated by Dr. Tanvir Suresh and deemed not to be a surgical candidate upfront due tothe locally advanced disease. We will start FOLFIRINOX chemotherapy. I discussed potential adverse effects, including fatigue, hair thinning, mouth sores, nausea, diarrhea, constipation, rash, cytopenias, and infection. 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 He initially tolerated FOLFIRINOX reasonably well. He reported moderate fatigue and moderate asthenia. He reported anorexia. He reported nausea cycle 1 day 1, which resolved. He took ondansetron withpartial relief. He reported constipation x 1 day, which resolved without intervention. He had difficulty with FOLFIRINOX cycle 2. He reported moderate fatigue and moderate asthenia. He reported anorexia. He developed nausea x 6 days during week 1, partially relieved by ondansetron. He presented to the [facility] on 03/31[facility]2020 for cycle on cycle 2-day 8 with poorly controlled nausea. He received IV hydration. He received ondansetron 4 mg IV with partial relief. He developed GERD symptoms and epigastric pain, which persist. We dose-reduced the oxaliplatin and irinotecan by 20% with cycle 3. He again had difficulty with toxicities. He reports moderate fatigue and moderate asthenia, which resolved off chemotherapy. He reported anorexia. He lost weight from 123 pounds on 04/05/2024 down to 117 pounds on 04/20/2024. He developed nausea, partially relieved by ondansetron and partially relieved by Compazine, which persisted throughout the cycle, which resolved off chemotherapy. He developed epigastric pain, not relieved by Prilosec, which resolved off chemotherapy. He took oxycodone 5 mg as needed with partial relief. He developed LFT abnormalities on 04/19/2024, likely due to either oxaliplatin or irinotecan. The LFT abnormalities resolved on 05/07/2024. An A/P CT with IV and without oral contrast on 03/31/2024 following 2 cycles of FOLFIRINOX showed a stable large pancreatic head mass and no tumor response. A chest CT with contrast on 05/05/2024 was unremarkable. We discontinued FOLFIRINOX following cycle 3 due to GI toxicities. The fatigue and asthenia resolved. The anorexia resolved. He regained weight over the last interval. The nausea resolved. The epigastric pain resolved. We delayed chemotherapy by 6 weeks following cycle 3 of FOLFIRINOX to allow continued recovery. We will change to gemcitabine/Abraxane with a 20% dose reduction. I discussed potential adverse effects, including fatigue, reversible hair loss, nausea, diarrhea, constipation, peripheral neuropathy, cytopenias, and infection. He is tolerating gemcitabine/Abraxane reasonably well. He reported intermittent mild dizziness. I instructed him to aggressively drink orally and the dizziness resolved. He reports intermittent dysuria starting in late 05/2024, which resolved. A UA on 07/07/2024 was negative for leukocyte esterase and nitrates. He reported intermittent mild epigastric/right upper quadrant abdominal pain, not requiring analgesics, which resolved A C/A/P CT in late 08/2024 showed stable pancreatic head mass and otherwise stable findings. He reports pleuritic right anterolateral lower thoracic/right upper quadrant abdominal pain since early 08/2024. He is being followed at [facility] for input into management. Radiation is being considered. This encounter is of high risk. The patient is a locally advanced pancreatic cancer, which is a life-threatening condition. He is receiving anticancer therapy with gemcitabine/Abraxane chemotherapy, which carries a risk of significant morbidity and mortality documented in this encounter Plan of Treatment Upcoming Encounters Date Type Department Care Team (Late st Contact Info) Description 03/25/2025 2:15 PM EDT Office Visit [facility] Hematology Oncology [address] [place] [phone] Kurt Case MD [address] [place] [address] documented as of this encounter Procedures Procedure Name Priority Date/Time Associated Diagnosis Comments ..MISCELLANEOUS REFERENCE LAB TEST 09/28/2024 ..MISCELLANEOUS REFERENCE LAB TEST 09/28/2024 ..MISCELLANEOUS REFERENCE LAB TEST 09/28/2024 documented in this encounter Results * Miscellaneous reference lab test (09/28/2024) us Provider Onbase MD LAB BLOOD ORDERABLES Final Re sult * Miscellaneous reference lab test (09/28/2024) us Provider Onbase MD LAB BLOOD ORDERABLES Final Re sult * Miscellaneous reference lab test (09/28/2024) us Provider Onbase MD LAB BLOOD ORDERABLES Final Re sult documented in this encounter Visit Diagnoses Not on filedocumented in this encounter Care Teams Ceramic Restorer Relationship Specialty Start Date End Date Deneen Beltran PA [address] [place] [id number] PCP - General 11/12/23 documented as of this encounter
--- OUTSIDE RECORDS SUMMARY | 2025-02-18 15:07 | XMS_ITS | Encounter Summary ---
Author Organization [employer] Address [address] [place] [address] Care Team Providers Care Weekend Caregiver Name Role Phone Deneen Beltran Primary Care Provider Encounter Details Date Type Department Care Team (Late st Contact Info) Description 09/02/2024 10:00 AM EDT Hospital Encounter TH HISTORIC ENCOUNTERS EASTERN CONVERSION ONLY Kurt Case MD [address] [place] [address] Social History Tobacco Use Types Packs/Day Years [...] PM EST documented as of this encounter Plan of Treatment Upcoming Encounters Date Type Department Care Team (Late st Contact Info) Description 03/25/2025 2:15 PM EDT Office Visit [facility] Hematology Oncology [address] [place] [address] Kurt Case MD [address] [place] [address] documented as of this encounter Visit Diagnoses Not on filedocumented in this encounter Care Teams Weekend Caregiver Relationship Specialty Start Date End Date Deneen Beltran PA [facility] [place] [address] PCP - General 11/12/23 documented as of this encounter
--- OUTSIDE RECORDS SUMMARY | 2025-02-18 15:07 | XMS_ITS | Encounter Summary ---
Author Organization [employer] Address [address] [place] [address] Care Team Providers Care Slag Production Worker Name Role Phone Deneen Beltran Primary Care Provider Encounter Details Date Type Department Care Team (Late st Contact Info) Description 09/09/2024 12:52 PM EDT Hospital Encounter TH HISTORIC ENCOUNTERS EASTERN CONVERSION ONLY Social History Tobacco Use Types Packs/Day Years [...] Sign Reading Time Taken Comments Blood Pressure - - Pulse - - Temperature - - Respiratory Rate - - Oxygen Saturation - - Inhaled Oxygen Concentration - - Weight 57.2 kg (126 lb) 09/02/2024 9:50 AM EDT Height 163.8 cm (5' 4.5 ) 09/02/2024 9:50 AM EDT Body Mass Index 21.29 09/02/2024 9:50 AM EDT documented in this encounter Progress Notes * Historical, Notes Results - 09/09/2024 1:00 PM EDT 1345- Pt arrived today for chemotherapy. Denies need for treating plant pumper machines. States everything is fine. Stable assessment without acute complaints or changes since last visit. Port accessed without diff. Treatment released. Pre meds given. Pt resting comfortably and watching TV at this time. Call dubose in reach. 1610- Pt rested comfortably throughout treatment. Tolerated each chemotherapy without incident. Next appts in place and reviewed. No further questions. Port flushed/deaccessed per protocol. Pt left unit, stable at D/C. documented in this encounter Plan of Treatment Upcoming Encounters Date Type Department Care Team (Late st Contact Info) Description 03/25/2025 2:15 PM EDT Office Visit [facility] Hematology Oncology [address] [place] [phone] Kurt Case MD [address] [place] [phone] documented as of this encounter Visit Diagnoses Not on filedocumented in this encounter Care Teams Slag Production Worker Relationship Specialty Start Date End Date Deneen Beltran PA [address] [place] [address] PCP - General 11/12/23 documented as of this encounter
--- OUTSIDE RECORDS SUMMARY | 2025-02-18 15:07 | XMS_ITS | Encounter Summary ---
Author Organization [facility] Address [address] [place] [address] Care Team Providers Care Template Fitter Name Role Phone Deneen Beltran PA-C Primary Care Provid er Encounter Details Date Type Department Care Team Description 03/09/2024 Social Work [facility] Oncology Services [address] [place] [address] Shaylee Perez [facility] Social History Tobacco Use Types Packs/Day Years [...] on filedocumented in this encounter Care Teams Template Fitter Relationship Specialty Start Date End Date Deneen Beltran PA-C [address] [place] [phone] PCP - General Physician Field Hand 12/17/23 documented as of this encounter
--- OUTSIDE RECORDS SUMMARY | 2025-02-18 15:07 | XMS_ITS ---
Author Organization [facility] Address [address] [place] [address] Phone Care Team Providers Care Bowling Ball Weigher And Packer Name Role Phone Deneen Beltran Primary Care Provider Active Problems Problem Noted Date Diagnosed Date Primary pancreatic neuroendocrine tumor 11/28/20 24 Malignant neoplasm of head of pancreas 4 Current Oncology Plans Albumin-bound PACLitaxel / Gemcitabine* Plan Start Date:05/12/2024 Plan Provider:Kurt Case MD Linked Problems Malignant neoplasm of head o f pancreas (CMS/HCC) Treatment Medications Current Day (Day 1 5, Cycle 6 - Planned for 10/21/2024) gemcitabine (GEMZAR)gemcitab ine (GEMZAR) chemo IVPB in 250 mL (38 mg/mL)PACLitaxel Protein Bound (ABRAXANE)paclitaxel protein-bound (ABRAXANE) gemcitabine (GEMZAR) 1,300 mg in sodium chloride 284.19 mL chemo IVPBPACLitaxel Protein Bound (ABRAXANE) chemo injection 130 mg Past Plans No past plan information found. Radiation Treatments * No radiation treatments are documented for this patient in [facility]. Treatments may have been administered in another system.
--- OUTSIDE RECORDS SUMMARY | 2025-02-18 15:07 | XMS_ITS | Encounter Summary ---
Author Organization [email or web address] Address [address] [place] [address] Care Team Providers Care Licensed Vocational Nurse Name Role Phone Deneen Beltran Primary Care Provider Reason for Visit * Reason Comments Follow-up Encounter Details Date Type Department Care Team (Latest Contact Info) Description 02/11/2025 2:30 PM EDT Office Visit [facility] Hematology Oncology [address] [place] [address] Kurt Case MD [address] [place] [address] Malignant neoplasm of head of pancreas (CMS/HCC) (Primary Dx); Primary pancreatic neuroendocrine tumor (CMS/HCC) Social History Tobacco Use Types Packs/Day Years [...] Sign Reading Time Taken Comments Blood Pressure 128/86 02/11/2025 2:28 PM EDT Pulse 71 02/11/2025 2:28 PM EDT Temperature 36.7 ??C (98 ??F) 02/11/2025 2:28 PM EDT Respiratory Rate - - Oxygen Saturation 100% 02/11/2025 2:28 PM EDT Inhaled Oxygen Concentration - - Weight 57.6 kg (127 lb) 02/11/2025 2:28 PM EDT Height - - Body Mass Index 21.13 12/04/2024 2:59 PM EST documented in this encounter Progress Notes * Kurt Case MD - 02/11/2025 2:30 PM EDT Diagnosis/treatment: Locally advanced pancreatic neuroendocrine cancer, diagnosed in 12/2023. He started FOLFIRINOX on 03/09/2024. We dose-reduce the oxaliplatin and irinotecan by 20% with cycle 3 on 04/07/2024. We discontinued FOLFIRINOX following cycle 3 due to GI toxicities. He started gemcitabine/Abraxane with a 20% dose reduction on 05/13/2024. He progressed with liver metastases in 10/2024. He started Xeloda/Temodar on 11/25/2024. Interval history: The patient is a 64-year-old [...] and neuroendocrine differentiation, trypsin-positive, synaptophysin-positive, chromogranin A-negative, [id number], and [id number]. Marked dilatation of the common bile duct [...] relieved by ondansetron. He presented to the [facility] on 03/31/2024 for cycle on cycle 2-day [...] with contrast on 05/05/2024 was unremarkable. He tolerated gemcitabine/Abraxane reasonably well. He reported intermittent mild [...] mass and otherwise stable findings. He reports mild pleuritic right anterolateral lower thoracic/right upper quadrant abdominal pain since early 08/2024. He was evaluated [facility] on 09/24/2024. DPYD genetic testing showed no relevant mutations. 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 The pathology reviewed at [facility] changed the tissue diagnosis to a grade 1 pancreatic neuroendocrine tumor. A gallium-68 dotatate PET/CT on 10/25/2024 showed an enlarging 11.3 x 9.3 x 6.1 cm dotatate-avid pancreatic head mass with central necrosis (increased compared to the 03/31/2024 CT.) There was focal uptake in hepatic segment 8 and in hepatic segment 4A/B. He is tolerating Xeloda/Temodar reasonably well. He reports mild fatigue. He reports mild nausea. He takes ondansetron 8 mg as a premed before Temodar. He developed black stools on 12/01/2024, which persisted x 3 days and resolved. He remains on omeprazole 40 mg daily. A CBC on 12/03/2024 showed WBC 7.8, hemoglobin 11.1 with MCV 92 and platelet count 268,000. A creatinine was 1.3. LFTs were normal. A percent transferrin saturation was 10. A ferritin was 10. We sent the patient to the [facility] ER on 12/04/2024. A rectal exam revealed brown stool with scant bright red blood. A CBC so WBC 7.1, hemoglobin 11.9 with MCV 92, platelet count 272,000. A/P CT with IV contrast and without oral contrast on 12/04/2024 showed a 5.5 x 9.0 x 8.8 cm pancreatic mass involvingthe head and uncinate process. Intrahepatic biliary dilatation was seen. No liver lesions were seen. A large colonic fecal load was seen. A CBC on 12/17/2024 showed WBC 5.9, hemoglobin 12.2 MCV 90, and platelet count 231,000. A creatininewas 1.6. LFTs were normal apart from minimal elevation of alkaline phosphatase to 123. A CBC on 01/14/2025 showed WBC 5.3, hemoglobin 11.9 with MCV 91, and platelet count 221,000. A creatinine was 1.4. LFTs were normal. A percent transferrin saturation was 6. A ferritin was 4. An abdominal MRI with contrast on 01/26/2025 showed a stable pancreatic head mass. There was increased intra and extrahepatic biliary ductal dilatation due to mass effect from the primary tumor. Therewere stable hepatic metastases in segment 8 and segment 4A. There was a new 0.3 cm metastasis in segment 2. A C/A/P CT with IV contrast and without oral contrast on 01/26/2025 showed concordant findings. He denies headaches or visual changes. 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 He is . He has 2 daughters [...] relieved by ondansetron. He presented to the [facility] on 03/31/2020 for cycle on cycle 2-day [...] quadrant abdominal pain since early 08/2024. He was evaluated [facility] on 09/24/2024. DPYD genetic testing showed no relevant mutations. 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 The pathology reviewed at [facility] changed the tissue diagnosis to a grade 1 pancreatic neuroendocrine tumor. His [facility] oncologist recommended starting Xeloda/Temodar. I discussed potential adverse effects of Xeloda, including fatigue, nausea, diarrhea, hand- foot syndrome, cytopenias, and infection. I discussed potential adverse effects of Temodar, including fatigue, sedation, reversible hair loss, nausea, constipation, cytopenias, and infection. A gallium-68 dotatate PET/CT on 10/25/2024 showed an enlarging 11.3 x 9.3 x 6.1 cm dotatate-avid pancreatic head mass with central necrosis (increased compared to the 03/31/2024 CT) There was focal uptake in hepatic segment 8 and in hepatic segment 4A/B. He is tolerating Xeloda/Temodar reasonably well. He reports mild fatigue. He reports mild nausea. He takes ondansetron 8 mg as a premed before Temodar. He developed black stools on 12/01/2024, which persisted x 3 days and resolved. He remains on omeprazole 40 mg daily. A CBC on 12/03/2024 showed WBC 7.8, hemoglobin 11.1 with MCV 92 and platelet count 268,000. A creatinine was 1.3. LFTs were normal. A percent transferrin saturation was 10. A ferritin was 10. I instructed him to start oral iron 1 tablet daily. I instructed him to to start a stool softener if he develops constipation. I referred him to GI. We sent the patient to the [facility] ER on 12/04/2024. A rectal exam revealed brown stool with scant bright red blood. A CBC on 12/17/2024 showed WBC 5.9, hemoglobin 12.2 MCV 90, and platelet count 231,000. A creatininewas 1.6. LFTs were normal apart from minimal elevation of alkaline phosphatase to 123. A restaging abdominal MRI in late 01/2025 showed mostly stable findings apart from a new small metastasis in the hepatic segment 2. As the Xeloda/Temodar did not produce a response, his [facility] physicians recommended discontinuation of Xeloda/Temodar. Octreotide therapy was recommended. We will start somatostatin 30 mg IM every 4 weeks. I discussed potential adverse effects, including sweats, abdominal pain, and diarrhea. Visit summary: The patient is a 64-year-old gentleman who presented in 12/2022 with a pancreatic neuroendocrine tumor. He was recently trialed on Xeloda/Temodar therapy and tolerated therapy reasonably well despite mild systemic and mild GI toxicities. However restaging studies in [place] in late 01/2025 showed onlymostly stable disease and not the desired treatment response. We will therefore start octreotide therapy. This encounter is of high risk. The patient has a pancreatic neuroendocrine tumor, which is likely condition. He recently completed anticancer therapy with Xeloda/Temodar, which carries a risk of significant morbidity and mortality. documented in this encounter Plan of Treatment Upcoming Encounters Date Type Department Care Team (Late st Contact Info) Description 03/25/2025 2:15 PM EDT Office Visit [facility] Hematology Oncology [address] [place] [phone] Kurt Case MD [address] [place] [address] documented as of this encounter Visit Diagnoses Diagnosis Malignant neoplasm of head of pancreas (CMS/HCC)- Primary Malignant neoplasm of head of pancreas Primary pancreatic neuroendocrine tumor (CMS/HCC) documented in this encounter Care Teams Licensed Vocational Nurse Relationship Specialty Start Date End Date Deneen Beltran PA [address] [place] [address] PCP - General 11/12/23 documented as of this encounter
--- OUTSIDE RECORDS SUMMARY | 2025-02-18 15:07 | XMS_ITS | Encounter Summary ---
Author Organization [employer] Address [address] [place] [address] Care Team Providers Care Association Executive Name Role Phone Deneen Beltran Primary Care Provider Encounter Details Date Type Department Care Team (Late st Contact Info) Description 09/28/2024 9:45 AM EDT Hospital Encounter TH HISTORIC ENCOUNTERS EASTERN CONVERSION ONLY Kurt Case MD [address] [place] [address] Social History Tobacco Use Types [...] Description 03/25/2025 2:15 PM EDT Office Visit [facility] Hematology Oncology [address] [place] [address] Kurt Case MD [address] [place] [address] documented as of this encounter Visit Diagnoses Not on filedocumented in this encounter Care Teams Association Executive Relationship Specialty Start Date End Date Deneen Beltran PA [facility] [place] [address] PCP - General 11/12/23 documented as of this encounter
--- OUTSIDE RECORDS SUMMARY | 2025-02-18 15:07 | XMS_ITS | Encounter Summary ---
Author Organization [employer] Address [address] [place] [address] Care Team Providers Care Off Track Betting Manager Name Role Phone Deneen Beltran Primary Care Provider Encounter Details Date Type Department Care Team (Late st Contact Info) Description 09/16/2024 12:58 PM EDT Hospital Encounter TH HISTORIC ENCOUNTERS [...] - Inhaled Oxygen Concentration - - Weight 58.6 kg (129 lb 3 oz) 09/09/2024 1:08 PM EDT Height 163.8 cm (5' 4.5 ) 09/02/2024 9:50 AM EDT Body Mass Index 21.83 09/02/2024 9:50 AM EDT documented in this encounter Progress Notes * Historical, Notes Results - 09/16/2024 1:00 PM EDT 1330- Pt arrived today for chemotherapy. Stable assessment without acute complaints or changes since last visit. Pt feeling rather well. Port accessed without diff. Treatment released and initiated. Pt resting comfortably at this time. Call dubose in reach. 1535- Pt tolerated each chemotherapy med without incident. Pt rested comfortably throughout treatment. Next appts in place and reviewed. Port flushed/deaccessed per protocol. Pt left unit, stable at D/C. documented in this encounter Plan of Treatment Upcoming Encounters Date Type Department Care Team (Late st Contact Info) Description 03/25/2025 2:15 PM EDT Office Visit [facility] Hematology Oncology [address] [place] [address] Kurt Case MD [address] [place] [phone] documented as of this encounter Visit Diagnoses Not on filedocumented in this encounter Care Teams Off Track Betting Manager Relationship Specialty Start Date End Date Deneen Beltran PA [address] [place] [address] PCP - General 11/12/23 documented as of this encounter
--- OUTSIDE RECORDS SUMMARY | 2025-02-18 15:07 | XMS_ITS | Encounter Summary ---
Author Organization [employer] Address [address] [place] [address] Care Team Providers Care Medicinal Chemist Name Role Phone Deneen Beltran Primary Care Provider Encounter Details Date Type Department Care Team (Late st Contact Info) Description 09/23/2024 12:46 PM EDT Hospital Encounter TH HISTORIC ENCOUNTERS [...] - Inhaled Oxygen Concentration - - Weight 57.7 kg (127 lb 3.3 oz) 09/16/2024 1:04 P M EDT Height 163.8 cm (5' 4.5 ) 09/02/2024 9:50 AM EDT Body Mass Index 21.5 09/02/2024 9:50 AM EDT documented in this encounter Progress Notes * Historical, Notes Results - 09/23/2024 1:00 PM EDT 1335- Pt arrived today for chemotherapy. Stable assessment without acute complaints or changes since last visit. Pt feeling rather well. Port accessed without diff. Treatment released and initiated. Pt resting comfortably at this time. Call dubose in reach. ?? 1608- Pt tolerated each chemotherapy med without incident. Pt rested comfortably throughout treatment. Next appts made and provided via calendar. Port flushed/deaccessed per protocol. Pt left unit, stable at D/C. documented in this encounter Plan of Treatment Upcoming Encounters Date Type Department Care Team (Late st Contact Info) Description 03/25/2025 2:15 PM EDT Office Visit [facility] Hematology Oncology [address] [place] [address] Kurt Case MD [address] [place] [phone] documented as of this encounter Visit Diagnoses Not on filedocumented in this encounter Care Teams Medicinal Chemist Relationship Specialty Start Date End Date Deneen Beltran PA [address] [place] [address] PCP - General 11/12/23 documented as of this encounter
--- OUTSIDE RECORDS SUMMARY | 2025-02-18 15:07 | XMS_ITS | Clinical Summary ---
Author Organization [facility] Address [address] [place] [address] Care Team Providers Care Chemical Processing Laborer Name Role Phone Deneen Beltran PA-C Primary Care Provid er Allergies No known active allergies Medications Medication Sig Dispensed Refills Start Date End Date Status folic acid (FOLVITE) tablet 1 mg Take 1 tablet (1 mg total) by mouth daily. 0 Active colchicine 0.6 MG tablet Take 1 tablet (0.6 mg total) by mouth daily. 0 Active glipiZIDE (GLUCOTROL) tablet 10 mg Take 1 tablet (10 mg total) by mouth 2 (two) times a day before breakfast and dinner. 0 Active NIFEdipine (PROCARDIA XL) 60 MG 24 hr tablet Take 1 tablet (60 mg total) by mouth daily. 0 Active olmesartan (BENICAR) tablet 20 mg Take 1 tablet (20 mg total) by mouth daily. 0 Active thiamine mononitrate (VITAMIN B-1) 100 MG tablet Take 1 tablet (100 mg total) by mouth daily. 0 Active allopurinol (ZYLOPRIM) 100 MG tablet Take 1 tablet (100 mg total) by mouth daily. 0 Active ondansetron (ZOFRAN) 8 MG tablet Take 1 tablet (8 mg total) by mouth every 8 (eight) hours as needed for nausea. 30 tablet 2 03/01/2024 Active lidocaine-prilocaine (EMLA) cream Apply topically as needed. 30 g 2 03/09/2024 Active oxyCODONE (ROXICODONE) 5 MG immediate release tablet Take 1 tablet (5 mg total) by mouth every 4 (four) hours as needed for pain (may cause drowsiness). 60 tablet 0 04/15/2024 Active Benadryl wjze-Ztmfcs-Jmfaonyr -Lidocaine Visc mouth wash 1:1:1:1 Swish and spit 5 mL every 6 (six) hours as needed for mucositis. 360 mL 1 04/15/2024 Active esomeprazole (NexIUM) 20 MG packet Take 20 mg by mouth every morning before breakfast. 30 each 2 04/15/2024 Active prochlorperazine (COMPAZINE) 10 MG tablet Take 1 tablet (10 mg total) by mouth every 6 (six) hours as needed. 30 tablet 2 04/15/2024 Active omeprazole (PriLOSEC) 40 MG capsule TAKE 1 CAPSULE (40 MG TOTAL) BY MOUTH DAILY. 90 capsule 3 06/30/2024 Active Active Problems Problem Noted Date Diagnosed Date Malignant neoplasm of head of pancreas Social History Tobacco Use Types Packs/Day Years Used Date Smoking Tobacco: Never Smokeless Tobacco: Never Tobacco Cessation:Counseling Given: Not Answered Alcohol Use Standard Drinks/Week Comments Never 0 (1 standard drink = 0.6 oz pur e alcohol) Sex and Gender Information Value Date Recorded Sex Assigned at Male 04/06/2024 10:23 AM EDT Gender Identity Not on file Sexual Orientation Not on file Job Start Date Occupation Industry Not on file Not on file Not on file Last Filed Vital Signs Vital Sign Reading Time Taken Comments Blood Pressure 107/64 09/28/2024 9:49 AM EDT Pulse 80 09/28/2024 9:49 AM EDT Temperature 36.7 ??C (98 ??F) 09/28/2024 9:49 AM EDT Respiratory Rate 16 09/23/2024 1:05 PM EDT Oxygen Saturation 10% 09/28/2024 9:49 AM EDT Inhaled Oxygen Concentration - - Weight 57.2 kg (126 lb) 09/28/2024 9:49 AM EDT Height 163.8 cm (5' 4.5 ) 09/02/2024 9:50 AM EDT Body Mass Index 21.29 09/02/2024 9:50 AM EDT Plan of Treatment Health Maintenance Due Date Last Done Comments Hepatitis C Screening 1962 Depression Screening 1974 Preventative Health Evaluation 1980 Colon Cancer Screening (Colonoscopy) 2007 Hepatitis B Vaccines (3 of 3 - 19+ 3-dose series) 07/13/2020 02/09/2020, 01/13/2020 COVID-19 Vaccine (3 - Pfizer risk series) 12/09/2022 11/11/2022, 12/21/2021 Influenza Vaccine (#1) 2024 , 11/11/2022, 11/21/2021, Additional history exists DTap / Tdap / Td (3 - Td or Tdap) 12/13/2027 12/13/2017, 11/13/2012 RSV Adult > 60+ Yrs or (1 - 1-dose 75+ series) 2037 Shingrix-Zoster Vaccine Completed 01/13/2020, 07/29 Pneumococcal Vaccine Completed 03/26/2023, 10/21/20 19 RSV Ped < 20 months Aged Out No longe r eligible based on patient's age to complete this topic Care Teams Chemical Processing Laborer Relationship Specialty Start Date End Date Deneen Beltran PA-C [address] [place] [address] PCP - General Physician Slide Attendant 12/17/23
--- OUTSIDE RECORDS SUMMARY | 2025-02-18 15:07 | XMS_ITS | Clinical Summary ---
Author Organization 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 02/26/20 22 Active colchicine (MITIGARE) 0.6 mg capsule capsule Take 1 capsule (0.6 mg total) by mouth. 02/26/20 22 Active esomeprazole (NexIUM) 20 mg packet Take 20 mg by mouth. 04/15/20 24 Active folic acid (FOLVITE) 1 mg tablet Take 1 tablet (1 mg total) by mouth 1 (one) time each day. 11/04/20 23 Active glipiZIDE (GLUCOTROL XL) 10 mg 24 hr tablet Take 1 tablet (10 mg total) by mouth. 11/21/20 21 Active omeprazole (PriLOSEC) [address] capsule Take 1 capsule (40 mg total) by mouth 1 (one) time each day. 04/05/20 24 Active ondansetron ODT (ZOFRAN-ODT) 4 mg disintegrating tablet [facility]/pharmacy #[id number] [place], [place] [phone] 10 Each 0 4 Sig: DISSOLVE 1 TABLET ON TONGUE 3 TIMES DAILYSource: Surescripts (Fill History, Ambulatory)Autho rized by: KRUNAL GAVIN 04/13/20 24 Active prochlorperazine (COMPAZINE) 10 mg tablet Take 1 tablet (10 mg total) by mouth every 6 hours as needed. 04/15/20 24 Active methocarbamoL (ROBAXIN) 750 mg tablet Take 1 tablet (750 mg total) by mouth 4 (four) times a day if needed for muscle spasms (may cause drowsiness) for up to 10 days. 40 each 10/07/20 24 Active oxyCODONE (ROXICODONE) 5 mg immediate release tablet Take 1 tablet (5 mg total) by mouth every 4 (four) hours if needed for severe pain. Max Daily Amount: 30 mg 120 tablet 10/25/20 24 Active Farxiga 10 mg tablet TAKE 1 TABLET BY MOUTH EVERY MORNING (TAKE WITH PLENTY OF FLUIDS THROUGHOUT THE DAY) Active capecitabine (XELODA) 500 mg tabletIndications: Malignant neoplasm of head of pancreas (CMS/HCC) Take 1500 mg every morning and 1000 mg 12 hours later by mouth, on days 1-14. Repeat every 28 days. 70 tablet 6 11/17/20 24 Active famotidine (PEPCID) 20 mg tablet Take 1 tablet (20 mg total) by mouth 2 (two) times a day. 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 Malignant neoplasm of head of pancreas 4 Encounters Date Type Department Care Team Description 02/11/2025 2:30 PM EDT Office Visit [facility] Hematology Oncology [address] [place] [phone] Kurt Case MD Malignant neoplasm of head of pancreas (CMS/HCC) (Primary Dx); Primary pancreatic neuroendocrine tumor (CMS/HCC) 01/14/2025 2:45 PM EST Office Visit [facility] Hematology Oncology [address] [place] [phone] Kurt Case MD Malignant neoplasm of head of pancreas (CMS/HCC) (Primary Dx); Primary pancreatic neuroendocrine tumor (CMS/HCC) 12/17/2024 2:45 PM EST Office Visit [facility] Hematology Oncology [address] [place] [phone] Kurt Case MD Malignant neoplasm of head of pancreas (CMS/HCC) (Primary Dx); Primary pancreatic neuroendocrine tumor (CMS/HCC) 12/06/2024 Telephone [facility] Hematology Oncology [address] [place] [phone] Portia Martinez MA GI Referral 12/04/2024 8:24 PM EST - 12/04/2024 11:20 PM EST Emergency [facility] Emergency [address] [place] [phone] Keo Dunn DO Abdominal pain, generalized (Primary Dx) Discharge Disposition: Home or Self Care 12/03/2024 2:30 PM EST Office Visit [facility] Hematology Oncology [address] [place] [phone] Kurt Case MD Malignant neoplasm of head of pancreas (CMS/HCC) (Primary Dx); Primary pancreatic neuroendocrine tumor (CMS/HCC) from Last 3 Months Immunizations Name Administration Dates Next Due Pfizer SARS-CoV-2 COVID-19, mRNA, LNP-S, preservative free 12/21/2021 Medical History Medical History Date Comments Diabetes mellitus ([facility]/HCC) Pancreatic cancer ([facility]/HCC) Hypertension Social History Tobacco Use Types Packs/Day Years [...] Orientation Straight 12/04/2024 5: 23 PM EST Obstetrics History Last Filed Vital Signs Vital Sign Reading Time Taken Comments Blood Pressure 128/86 02/11/2025 2:28 PM EDT Pulse 71 02/11/2025 2:28 PM EDT Temperature 36.7 ??C (98 ??F) 02/11/2025 2:28 PM EDT Respiratory Rate 16 12/04/2024 5:58 PM EST Oxygen Saturation 100% 02/11/2025 2:28 PM EDT Inhaled Oxygen Concentration - - Weight 57.6 kg (127 lb) 02/11/2025 2:28 PM EDT Height 165.1 cm (5' 5 ) 12/04/2024 2:59 PM EST Body Mass Index 21.13 12/04/2024 2:59 PM EST Plan of Treatment Upcoming Encounters Date Type Department Care Team (Late st Contact Info) Description 03/25/2025 2:15 PM EDT Office Visit [facility] Hematology Oncology [address] [place] [phone] Kurt Case MD [address] [place] [phone] Health Maintenance Due Date Last Done Comments Diabetes: Annual Foot Exam 1972 Diabetes: Annual Retina Eye Exam 1972 Hepatitis A Vaccines (1 of 2 - Risk 2-dose series) 1981 Hepatitis B Vaccines (3 of 3 - Risk 3-dose series) 07/13/2020 02/09/2020, 01/13/2020 RSV Immunization Patients 60+ Years Old (1 - Risk 60-74 years 1-dose series) 2022 Colorectal Cancer Screening: Colonoscopy 11/03/2022 HIV Screening 11/03/2022 Social Influencers of Health Screening 11/03/2022 Diabetes: Annual Urine Albumin-Creatinine Ratio (uACR) 12/09/2024 12/09/2023, 08/20/2022, 01/05/2021, Additional history exists Diabetes: Blood Sugar Control Test (HGBA1C) 05/18/2025 11/17/2024, 08/18/2024, 04/30/2024 Diabetes: Annual GFR (Glomerular Filtration Rate) 01/14/2026 01/14/2025, 12/17/2024, 12/04/2024, Additional history exists Hypertension/CHF/CAD Annual BMP Blood Test 01/14/2026 01/14/2025, 12/17/2024, 12/04/2024, Additional history exists Depression Screening 02/02/2026 02/02/2025 DTaP,Tdap,and Td Vaccines (3 - Td or Tdap) 12/13/2027 12/13/2017, 11/13/2012 Cholesterol Screening (Lipid Panel) 11/17/2029 11/17/2024, 11/17/2024, 11/13/2023, Additional history exists Zoster Vaccines Completed 01/13/2020, 07/29/2019 Pneumococcal Vaccine: 50+ Years Completed 03/26/2023, 10/21/2019 Pneumococcal Vaccine: Pediatrics (0 to 5 Years) and At-Risk Patients (6 to 64 Years) Completed 03/26/2023, 10/21/2019 Hepatitis C Screening Completed 11/17/2023 Influenza Vaccine Completed 09/10/2024, , 11/11/2022, Additional history exists COVID-19 Vaccine Completed 09/17/2024, 10/2022, 12/21/2021, Additional history exists HIB Vaccines Aged Out No longer eligi ble based on patient's age to complete this topic HPV Vaccines Aged Out No longer eligi ble based on patient's age to complete this topic IPV Vaccines Aged Out No longer eligi ble based on patient's age to complete this topic MMR Vaccines Aged Out No longer eligi ble based on patient's age to complete this topic Meningococcal ACWY Vaccine Aged Out N o longer eligible based on patient's age to complete this topic Meningococcal B Vacine Aged Out No lo nger eligible based on patient's age to complete this topic RSV Immunization Patients Under 20 months Aged Out No longer eligible based on patient's age to complete this topic Varicella Vaccines Aged Out No longer eligible based on patient's age to complete this topic Procedures Procedure Name Priority Date/Time Associated Diagnosis Comments CBC WITH AUTO DIFFERENTIAL Routine 01/14/2025 3:09 PM EST Primary pancreatic neuroendocrine tumor (CMS/HCC) IRON AND TIBC Routine 01/14/2025 3:09 PM EST Primary pancreatic neuroendocrine tumor (CMS/HCC) FERRITIN Routine 01/14/2025 3:09 PM EST Primary pancreatic neuroendocrine tumor (CMS/HCC) COMPREHENSIVE METABOLIC PANEL Routine 01/14/2025 3:09 PM EST Primary pancreatic neuroendocrine tumor (CMS/HCC) CBC AND DIFFERENTIAL Routine 01/14/2025 3:09 PM EST Primary pancreatic neuroendocrine tumor (CMS/HCC) CBC WITH AUTO DIFFERENTIAL Routine 12/17/2024 3:12 PM EST Primary pancreatic neuroendocrine tumor (CMS/HCC) IRON AND TIBC Routine 12/17/2024 3:12 PM EST Primary pancreatic neuroendocrine tumor (CMS/HCC) FERRITIN Routine 12/17/2024 3:12 PM EST Primary pancreatic neuroendocrine tumor (CMS/HCC) COMPREHENSIVE METABOLIC PANEL Routine 12/17/2024 3:12 PM EST Primary pancreatic neuroendocrine tumor (CMS/HCC) CBC AND DIFFERENTIAL Routine 12/17/2024 3:12 PM EST Primary pancreatic neuroendocrine tumor (CMS/HCC) CT ABDOMEN PELVIS W CONTRAST STAT 12/04/2024 10:18 PM EST TYPE AND SCREEN STAT 12/04/2024 9:21 PM EST POCT GLUCOSE BLOOD Routine 12/04/2024 8: 31 PM EST CBC WITH AUTO DIFFERENTIAL STAT 12/04/2024 3:22 PM EST COMPREHENSIVE METABOLIC PANEL STAT 12/04/2024 3:22 PM EST CBC AND DIFFERENTIAL STAT 12/04/2024 3:22 PM EST CBC WITH AUTO DIFFERENTIAL Routine 12/03/2024 2:56 PM EST Malignant neoplasm of head of pancreas (CMS/HCC) COMPREHENSIVE METABOLIC PANEL Routine 12/03/2024 2:56 PM EST Malignant neoplasm of head of pancreas (CMS/HCC) IRON AND TIBC Routine 12/03/2024 2:56 PM EST Malignant neoplasm of head of pancreas (CMS/HCC) FERRITIN Routine 12/03/2024 2:56 PM EST Malignant neoplasm of head of pancreas (CMS/HCC) CBC AND DIFFERENTIAL Routine 12/03/2024 2:56 PM EST Malignant neoplasm of head of pancreas (CMS/HCC) from Last 3 Months Results * (ABNORMAL) CBC auto differential (01/14/2025 3:09 PM EST) Only the most recent of4 resultswithin the time period is included. WBC 5.3 4.8 - 10.8 K/mcL LAB HEMETOLOGY METHOD 01/14/2025 4:38 PM [facility] RBC 4.20(L) 4.50 - 5.50 M/mcL LAB HEMETOLOGY METHOD 01/14/2025 4:38 PM [facility] Hemoglobin 11.9(L) 13.5 - 17.5 g/dL LAB HEMETOLOGY METHOD 01/14/2025 4:38 PM [facility] Hematocrit 37.7(L) 42.0 - 54.0 % LAB HEMETOLOGY METHOD 01/14/2025 4:38 PM [facility] MCV 90.6 79.0 - 98.0 FL LAB HEMETOLOGY METHOD 01/14/2025 4:38 PM [facility] MCH 28.6 27.0 - 32.0 pcg LAB HEMETOLOGY METHOD 01/14/2025 4:38 PM [facility] MCHC 31.6(L) 32.0 - 37.0 g/dL LAB HEMETOLOGY METHOD 01/14/2025 4:38 PM [facility] RDW 15.0 11.0 - 15.0 % LAB HEMETOLOGY METHOD 01/14/2025 4:38 PM [facility] Platelets 221 130 - 400 K/mcL LAB HEMETOLOGY METHOD 01/14/2025 4:38 PM [facility] MPV 9.8 7.0 - 11.0 FL LAB HEMETOLOGY METHOD 01/14/2025 4:38 PM [facility] NRBC 0.0 <1.0 % LAB HEMETOLOGY METHOD 01/14/2025 4:38 PM [facility] NRBC Absolute 0.00 <0.10 K/mcL LAB HEMETOLOGY METHOD 01/14/2025 4:38 PM [facility] Neutrophils Relative 55.5 % LAB HEMETOLOGY METHOD 01/14/2025 4:38 PM [facility] Lymphocytes Relative 24.7 % LAB HEMETOLOGY METHOD 01/14/2025 4:38 PM [facility] Monocytes Relative 9.3 % LAB HEMETOLOGY METHOD 01/14/2025 4:38 PM [facility] Eosinophils Relative 9.7 % LAB HEMETOLOGY METHOD 01/14/2025 4:38 PM [facility] Basophils Relative 0.6 % LAB HEMETOLOGY METHOD 01/14/2025 4:38 PM [facility] Immature Granulocytes Relative 0.2 % LAB HEMETOLOGY METHOD 01/14/2025 4:38 PM [facility] Neutrophils Absolute 2.92 1.50 - 7.00 K/mcL LAB HEMETOLOGY METHOD 01/14/2025 4:38 PM [facility] Lymphocytes Absolute 1.30 1.00 - 5.00 K/mcL LAB HEMETOLOGY METHOD 01/14/2025 4:38 PM [facility] Monocytes Absolute 0.49 0.20 - 1.00 K/mcL LAB HEMETOLOGY METHOD 01/14/2025 4:38 PM [facility] Eosinophils Absolute 0.51(H) 0.00 - 0.50 K/mcL LAB HEMETOLOGY METHOD 01/14/2025 4:[address] [facility] Basophils Absolute 0.03 0.00 - 0.20 K/[facility] LAB HEMETOLOGY METHOD 01/14/2025 4:[address] [facility] Immature Granulocytes Absolute 0.01 0.00 - 0.03 K/[facility] LAB HEMETOLOGY METHOD 01/14/2025 4:[address] [facility] Blood Venous blood specimen / Unknown Venipuncture / Unknown 01/14/2025 3:09 PM EST 01/14/2025 4:29 PM EST Kurt Case MD LAB BLOOD ORDERABLES Final Result Performing Organization Address [facility]/ZIP Co de Phone Number [facility] [address] [place] [address], * (ABNORMAL) Iron and TIBC (01/14/2025 3:09 PM EST) Only the most recent of3 resultswithin the time period is included. Iron 25(L) 50 - 160 mcg/dL LAB CHEMISTRY METHOD 01/14/2025 4:53 PM [facility] TIBC 388 250 - 450 mcg/dL LAB CHEMISTRY METHOD 01/14/2025 4:53 PM [facility] Iron Saturation 6(L) 20 - 50 % LAB CHEMISTRY METHOD 01/14/2025 4:[address] [facility] Blood Venous blood specimen / Unknown Venipuncture / Unknown 01/14/2025 3:09 PM EST 01/14/2025 4:28 PM EST us Kurt Case MD LAB BLOOD ORDERABLES Final Result Performing Organization Address [facility]/ZIP Co de Phone Number [facility] [address] [place] [address], [place] [phone] * (ABNORMAL) Ferritin (01/14/2025 3:09 PM EST) Only the most recent of3 resultswithin the time period is included. Ferritin 4(L) 26 - 388 ng/mL LAB CHEMISTRY METHOD 01/14/2025 5:01 PM [facility] Blood Venous blood specimen / Unknown Venipuncture / Unknown 01/14/2025 3:09 PM EST 01/14/2025 4:28 PM EST us Kurt Case MD LAB BLOOD ORDERABLES Final Result [facility] [address] [place] [address], [place] [phone] * (ABNORMAL) Comprehensive metabolic panel (01/14/2025 3:09 PM EST) Only the most recent of4 resultswithin the time period is included. Pathologist [facility] Sodium 139 133 - 145 mmol/L LAB CHEMISTRY METHOD 01/14/2025 4:53 PM [facility] Potassium 4.3 3.5 - 5.5 mmol/L LAB CHEMISTRY METHOD 01/14/2025 4:53 PM [facility] Chloride 108 96 - 110 mmol/L LAB CHEMISTRY METHOD 01/14/2025 4:53 PM [facility] CO2 26 21 - 32 mmol/L LAB CHEMISTRY METHOD 01/14/2025 4:53 PM [facility] Anion Gap 5 3 - 11 LAB CHEMISTRY METHOD 01/14/2025 4:53 PM [facility] Glucose 266(H) 70 - 100 mg/dL LAB CHEMISTRY METHOD 01/14/2025 4:53 PM [facility] BUN 21 5 - 25 mg/dL LAB CHEMISTRY METHOD 01/14/2025 4:53 PM [facility] Creatinine 1.35(H) 0.70 - 1.30 mg/dL LAB CHEMISTRY METHOD 01/14/2025 4:53 PM [facility] eGFR 59(L) >=60 mL/min/1. 73m2 LAB CHEMISTRY METHOD 01/14/2025 4:53 PM [facility] Comment:Calculation based on the??Chronic Kidney Disease Epidemiology Collaboration (CKD-EPI) equation refit??without adjustment for race. BUN/Creatinine Ratio 15.6 LAB CHEMISTRY METHOD 01/14/2025 4:53 PM [facility] Calcium 9.3 8.5 - 10.5 mg/dL LAB CHEMISTRY METHOD 01/14/2025 4:53 PM [facility] AST (SGOT) 35 10 - 42 unit/L LAB CHEMISTRY METHOD 01/14/2025 4:53 PM [facility] ALT (SGPT) 39 10 - 60 unit/L LAB CHEMISTRY METHOD 01/14/2025 4:53 PM [facility] Alkaline Phosphatase 101 42 - 121 unit/L LAB CHEMISTRY METHOD 01/14/2025 4:53 PM [facility] Total Protein 7.0 6.0 - 8.0 g/dL LAB CHEMISTRY METHOD 01/14/2025 4:53 PM [facility] Albumin 4.2 3.2 - 5.0 g/dL LAB CHEMISTRY METHOD 01/14/2025 4:53 PM [facility] Total Bilirubin 0.5 0.0 - 1.4 mg/dL LAB CHEMISTRY METHOD 01/14/2025 4:53 PM [facility] Blood Venous blood specimen / Unknown Venipuncture / Unknown 01/14/2025 3:09 PM EST 01/14/2025 4:28 PM EST us Kurt Case MD LAB BLOOD ORDERABLES Final Result [facility] [address] [place] [address], * CT Abdomen Pelvis w Contrast (12/04/2024 10:18 PM EST) Anatomical Region Laterality Modality Body Computed Tomogra phy 12/04/2024 10:5 8 PM EST Impressions 12/04/2024 10:58 PM EST Impression: 1. Large pancreatic mass involving the head and uncinate process measuring 5.5 x 9 x 8.8 cm. Pancreatic duct dilatation. Pancreatic body and tail are atrophic. No peripancreatic inflammation or fluid to suggest acute pancreatitis. 2. Intrahepatic biliary dilatation. Dilated CHD and CBD. No choledocholithiasis. Pancreatic lesion is having mass effect upon the distal CBD at the ampulla and this could potentially be causing biliary obstruction. 3. No gallstones or evidence for acute cholecystitis. 4. No colitis or diverticulitis. Large colonic fecal load which may correspond to constipation. This document has been electronically signed by: Gila Najera MD on 12/04/2024 22:58:16 Narrative 12/04/2024 10:58 PM EST Exam: CT Abdomen and Pelvis with contrast Comparison: None Clinical history: Abdominal pain acute nonlocalized. History of pancreatic cancer on chemotherapy Findings: No prior imaging studies are available for comparison. Lung bases are clear. Large pancreatic mass involving the head and uncinate process measuring 5.5 x 9 x 8.8 cm. Pancreatic duct dilatation. Pancreatic body and tail are atrophic. No peripancreatic inflammation or fluid to suggest acute pancreatitis. No liver lesions. Intrahepatic biliary dilatation. Common hepatic duct and common bile duct are dilated. No choledocholithiasis. Pancreatic lesion is having mass effect upon the distal CBD at the ampulla and this could potentially be causing biliary obstruction. No gallstones or evidence for acute cholecystitis Spleen has a normal appearance. SMV splenic vein and portal vein are patent without thrombosis. Pancreatic mass contours the IVC. No IVC thrombosis or occlusion. No ascites. Normal adrenal glands. Bilateral renal stones. No hydronephrosis. Areas of scarring seen at the kidneys bilaterally.. No abdominal aortic aneurysm. No small bowel obstruction Appendix is normal in caliber Large colonic fecal load. No colitis or diverticulitis. Urinary bladder wall thickening may be due to underdistention or cystitis. No bladder stones.. No free fluid Mild multilevel degenerative disease of the lumbar spine. No osseous lesions. Mild bilateral hip arthritis. Procedure Note Gila Najera MD - 12/04/2024 Exam: CT Abdomen and Pelvis with contrast Comparison: None Clinical history: Abdominal pain acute nonlocalized. History ofpancreatic cancer on chemotherapy Findings: No prior imaging studies are available for comparison. Lung bases are clear. Large pancreatic mass involving the head and uncinate process measuring 5.5 x 9 x 8.8 cm. Pancreatic duct dilatation. Pancreatic body and tailare atrophic. No peripancreatic inflammation or fluid to suggest acute pancreatitis. No liver lesions. Intrahepatic biliary dilatation. Common hepatic duct and common bile duct are dilated. No choledocholithiasis. Pancreatic lesion is having mass effect upon the distal CBD at the ampulla and this could potentially be causing biliary obstruction. No gallstones or evidence for acute cholecystitis Spleen has a normal appearance. SMV splenic vein and portal vein are patent without thrombosis. Pancreatic mass contours the IVC. No IVC thrombosis or occlusion. No ascites. Normal adrenal glands. Bilateral renal stones. No hydronephrosis. Areas of scarring seen at the kidneys bilaterally.. No abdominal aortic aneurysm. No small bowel obstruction Appendix is normal in caliber Large colonic fecal load. No colitis or diverticulitis. Urinary bladder wall thickening may be due to underdistention orcystitis. No bladder stones.. No free fluid Mild multilevel degenerative disease of the lumbar spine. No osseous lesions. Mild bilateral hip arthritis. IMPRESSION: Impression: 1. Large pancreatic mass involving the head and uncinate processmeasuring 5.5 x 9 x 8.8 cm. Pancreatic duct dilatation. Pancreatic body and tailare atrophic. No peripancreatic inflammation or fluid to suggest acute pancreatitis. 2. Intrahepatic biliary dilatation. Dilated CHD and CBD. No choledocholithiasis. Pancreatic lesion is having mass effect upon the distal CBD at the ampulla and this could potentially be causing biliary obstruction. 3. No gallstones or evidence for acute cholecystitis. 4. No colitis or diverticulitis. Large colonic fecal load which may correspond to constipation. This document has been electronically signed by: Gila Najera MD on 12/04/2024 22:58:16 Keo Dunn DO IMG CT PROCEDURES Final Result * Type and screen (12/04/2024 9:21 PM EST) ABO Group O 12/05/2024 12:[address] [facility] Rh Type Positive 12/05/2024 12:[address] [facility] Antibody Screen Negative 12/05/2024 12:[address] [facility] Blood Venous blood specimen / Unknown Venipuncture / Unknown 12/04/2024 9:21 PM EST 12/04/2024 10:37 PM EST Keo Dunn DO LAB BLOOD BANK TEST ORDERABLES Final Result [facility] [address] [place] [address], [place] [phone] * (ABNORMAL) POCT Glucose, blood (12/04/2024 8:31 PM EST) Glucose POCT 185(H) 70 - 100 mg/dL 12/04/2024 8:[address] [facility] Blood Capillary blood specimen / Unknown 12/04/2024 8:31 PM EST 12/04/2024 8:35 PM EST us Generic Provider Poct LAB POINT OF CARE TEST DOCKED DEVICE UNSOLICITED RESULTS Final Result Performing Organization Address City/[facility]/ZIP Co de Phone Number 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 Health Care Decision (hx) 11/06/2021 AD JOEL DIRECTIVE Health Care Decision (hx) 11/06/2021 AD JOEL DIRECTIVE Health Care Decision (hx) 11/06/2021 AD JOEL DIRECTIVE Health Care Decision (hx) 11/06/2021 AD JOEL DIRECTIVE Health Care Decision (hx) 11/06/2021 AD JOEL DIRECTIVE Health Care Decision (hx) 11/06/2021 AD JOEL DIRECTIVE Health Care Decision (hx) 11/06/2021 AD JOEL DIRECTIVE Health Care Decision (hx) 11/06/2021 AD JOEL DIRECTIVE Health Care Decision (hx) 11/06/2021 AD JOEL DIRECTIVE Health Care Decision (hx) 11/06/2021 AD JOEL DIRECTIVE Health Care Decision (hx) 11/06/2021 AD JOEL DIRECTIVE Health Care Decision (hx) 11/06/2021 AD JOLE DIRECTIVE Health Care Decision (hx) 11/06/2021 AD JOEL DIRECTIVE Health Care Decision (hx) 11/06/2021 AD JOEL DIRECTIVE Health Care Decision (hx) 11/06/2021 AD JOEL DIRECTIVE Health Care Decision (hx) 11/06/2021 AD JOEL DIRECTIVE Health Care Decision (hx) 11/06/2021 AD JOEL DIRECTIVE Health Care Decision (hx) 11/06/2021 AD JOEL DIRECTIVE Health Care Decision (hx) 11/06/2021 AD JOEL DIRECTIVE Health Care Decision (hx) 11/06/2021 AD JOLE DIRECTIVE Health Care Decision (hx) 11/06/2021 AD JOEL DIRECTIVE Health Care Decision (hx) 11/06/2021 AD JOEL DIRECTIVE Health Care Decision (hx) 11/06/2021 AD JOEL DIRECTIVE Health Care Decision (hx) 11/06/2021 AD JOEL DIRECTIVE Health Care Decision (hx) 11/06/2021 AD JOEL DIRECTIVE Health Care Decision (hx) 11/06/2021 AD JOEL DIRECTIVE Health Care Decision (hx) 11/06/2021 AD JOEL DIRECTIVE Health Care Decision (hx) 11/06/2021 AD JOEL DIRECTIVE Health Care Decision (hx) 11/06/2021 AD JOEL DIRECTIVE Health Care Decision (hx) 11/06/2021 AD JOEL DIRECTIVE Care Teams Brass Instrument Repair Technician Relationship Specialty Start Date End Date Deneen Beltran PA [address] [place] [address] PCP - General 11/12/23
== END 2025-02-18 14:17 | disposition home or self-care (01) ==
LOC: HO.HGI 12:46
PROVIDERS: PCP Physician Assistant; Visit Provider Internal Medicine
DX: R10.9 Unspecified abdominal pain (principal); D64.9 Anemia, unspecified; C25.9 Malignant neoplasm of pancreas, unspecified; C78.7 Secondary malignant neoplasm of liver and intrahepatic bile duct
CPT/HCPCS: 99204

== ENCOUNTER 2025-03-02 07:48 | Day surgery (SDC) | payer MEDICAID, SELFPAY ==
--- NOTE | 2025-03-01 09:03 | HO.ANESPROP2 ---
Documented by User: Melva Christopher NP 03/01/25 09:03 HPI - Anesthesia Eval Consult details Narrative: 64yo M for Upper Endoscopy PMFSH Active Problems Active Problems: All Active Problems Abdominal pain (Acute) Metastasis to liver (Acute) Pancreatic adenocarcinoma (Acute) Anemia (Acute) Gout (Acute) Hypertension (Acute) Swelling of knee joint, left (Acute) Past Medical History Medical History Diabetes Pancreatic adenocarcinoma Gout Hypertension Swelling of knee joint, left Social History Social History Advance Directives: No Advance Directives Information Provided: Yes Meds Allergies Allergy/AdvReac Type Severity Reaction Status Date / Time No Known Allergies Allergy Verified 03/02/25 08:58 Home Medications ?Medication ?Instructions ?Recorded ?Confirmed ?Last Taken ?Type atorvastatin 20 mg tablet 20 mg PO BEDTIME 11/16/21 02/18/25 Unknown History hydrochlorothiazide 25 mg tablet 25 mg PO Q OTHER DAY 11/16/21 02/18/25 Unknown History lisinopril 40 mg tablet 40 mg PO DAILY 11/16/21 02/18/25 Unknown History nifedipine 30 mg tablet,extended 30 mg PO DAILY 11/16/21 02/18/25 Unknown History release allopurinol 100 mg tablet 100 mg PO DAILY 02/18/25 02/18/25 Unknown History buspirone 10 mg tablet 10 mg PO BID anxiety 02/18/25 02/18/25 Unknown History glipizide 10 mg tablet, extended 10 mg PO QAM 02/18/25 02/18/25 Unknown History release 24 hr naltrexone 50 mg tablet 50 mg PO QAM 02/18/25 02/18/25 Unknown History olmesartan 20 mg tablet 20 mg PO QAM 02/18/25 02/18/25 Unknown History omeprazole 40 mg capsule,delayed 40 mg PO DAILY 02/18/25 02/18/25 Unknown History release sitagliptin phosphate 100 mg 100 mg PO QAM 02/18/25 02/18/25 02/27/25 History tablet (Januvia) thiamine mononitrate (vit B1) 100 mg PO 02/18/25 02/18/25 Unknown History mg tablet Documented by User: Felipa Boyce MD 03/02/25 09:06 [facility] Past Medical History Medical History Diabetes Pancreatic adenocarcinoma Gout Hypertension Swelling of knee joint, left Family History Family history of problems with anesthesia: No Surgical History History of Problems with Anesthesia: No Social History Social History Advance Directives: No Advance Directives Information Provided: Yes Meds Allergies Allergy/AdvReac Type Severity Reaction Status Date / Time No Known Allergies Allergy Verified 03/02/25 08:58 Home Medications ?Medication ?Instructions ?Recorded ?Confirmed ?Last Taken ?Type atorvastatin 20 mg tablet 20 mg PO BEDTIME 11/16/21 02/18/25 Unknown History hydrochlorothiazide 25 mg tablet 25 mg PO Q OTHER DAY 11/16/21 02/18/25 Unknown History lisinopril 40 mg tablet 40 mg PO DAILY 11/16/21 02/18/25 Unknown History nifedipine 30 mg tablet,extended 30 mg PO DAILY 11/16/21 02/18/25 Unknown History release allopurinol 100 mg tablet 100 mg PO DAILY 02/18/25 02/18/25 Unknown History buspirone 10 mg tablet 10 mg PO BID anxiety 02/18/25 02/18/25 Unknown History glipizide 10 mg tablet, extended 10 mg PO QAM 02/18/25 02/18/25 Unknown History release 24 hr naltrexone 50 mg tablet 50 mg PO QAM 02/18/25 02/18/25 Unknown History olmesartan 20 mg tablet 20 mg PO QAM 02/18/25 02/18/25 Unknown History omeprazole 40 mg capsule,delayed 40 mg PO DAILY 02/18/25 02/18/25 Unknown History release sitagliptin phosphate 100 mg 100 mg PO QAM 02/18/25 02/18/25 02/27/25 History tablet (Januvia) thiamine mononitrate (vit B1) 100 mg PO 02/18/25 02/18/25 Unknown History mg tablet Exam Airway Mallampati Class: II TM Dist: >3cm Heart: rrr Lungs: cta Assessment and Plan Assessment Anesthesia Assessment: Anesthesia Plan Discussed and Chart Reviewed Final Anesthetic Review Family History of Problems with Anesthesia: No History of Problems with Anesthesia: No NPO: Yes ASA Class: III Final Preanesthetic Review: No Changes in Pt Med Stat, Meds/Allgs Chart Reviewed, Consent Obtained/Reviewed and Anes Risks/Benef Reviewed Patient Risk: Intermediate Procedure Risk: Low Anesthetic Plan Anesthetic Plan: MAC: Disposition: Standard PACU
--- NOTE | 2025-03-02 09:08 | MHC.SHP ---
Pre-Procedural Eval Section A - 24 Hr Update-Section A only Date of Service: 03/02/25 The patient is an INPATIENT: No The patient has been examined within 24 hours of the surgical procedure. The History & Physical has been completed within 30 days and I have reviewed it.: Yes Section B - Complete if H&P > 30 days Chief Complaint: Unspecified abdominal pain Allergies: Allergies Allergy/AdvReac Type Severity Reaction Status Date / Time No Known Allergies Allergy Verified 03/02/25 08:58 Plan Diagnosis/Plan: Unchanged I have reviewed the history and physical and performed a pertinent physical examination on my patient. No changes have occurred unless specified. Time Spent With Patient Time: Total time managing care of this patient today ____ minutes.
[2025-03-02 09:15] VITALS: BP 131/85; PULSE 63; RESP 12; TEMP 36.5; O2SAT 99; BMI 21.3
[2025-03-02] MEDS: Lactated Ringers 1,000 ML 100 ML IVCONT (09:18)
[2025-03-02 09:25] LABS: Glucose, Whole Blood 136 mg/dL (60-115)
[2025-03-02 10:37] VITALS: BP 92/55; PULSE 76; RESP 16; TEMP 36.2; O2SAT 99
[2025-03-02 10:52] VITALS: BP 93/60; PULSE 67; RESP 16; O2SAT 100
--- NOTE | 2025-03-02 10:54 | P.OP_ITS ---
Operative Note Operative Note Date of Service: 03/02/25 Narrative: Procedure: Esophagogastroduodenoscopy Endoscopist: Geneva Bell MD Indication: Abd pain, melena, anemia Anesthesia Provider: Cristobal Dang CRNA Anesthesia Type: MAC ?? EGD Procedure:?? The procedure, indications, preparation and potential complications were reviewed with the patient, who indicated understanding and gave written informed consent to proceed. A physical exam was performed. The endoscope was introduced through the mouth, and advanced to the second part of duodenum. The mucosa was carefully examined on slow withdrawal of the endoscope. The patient tolerated the procedure well. There were no immediate complications.? ? EGD Findings:? * Esophagus:? Normal mucosa noted in the entire esophagus. The Z line was at 37 cm. * Stomach:? A small linear erosion/ulceration noted in cardia. Cold forceps biopsies were taken for histology. Retroflexion performed in the cardia. Solid food in fundus precluded complete visualization of the gastric mucosa but distal body and antrum mucosa appeared normal. Cold forceps biopsies were taken as per Nellie protocol for gastric mapping given underlying clinical history. * Duodenum:? Normal mucosa was noted in the whole of the examined duodenum. Cold forceps biopsies were taken from duodenal bulb and second portion of the duodenum to rule out celiac sprue. ? EGD Impressions:? * Normal esophagus * Gastric ulcer (biopsy) * Food in stomach * Normal duodenum (biopsy) ?? Recommendations:?? * Follow biopsy results. Our office will call or send a letter with results within 7-10 days. * Continue PPI therapy. * Avoid NSAIDs. Above has been reviewed with the patient.
[2025-03-02 11:07] VITALS: BP 119/76; PULSE 67; RESP 18; TEMP 36.4; O2SAT 99
[2025-03-02 11:22] VITALS: BP 127/82; PULSE 65; RESP 18; TEMP 36.2; O2SAT 99
== END 2025-03-02 12:10 | disposition home or self-care (01) ==
PROVIDERS: PCP Physician Assistant; Visit Provider Internal Medicine
PROC: 0DJ08ZZ Inspection of Upper Intestinal Tract, Via Natural or Artificial Opening Endoscopic (ICD-10-PCS; CPT 43235; principal; 2025-03-02 09:30)
DX: R10.9 Unspecified abdominal pain (principal); K92.1 Melena; D64.9 Anemia, unspecified; K29.50 Unspecified chronic gastritis without bleeding; B96.81 Helicobacter pylori [H. pylori] as the cause of diseases classified elsewhere; T18.2XXA Foreign body in stomach, initial encounter; W44.F3XA Food entering into or through a natural orifice, initial encounter; K25.9 Gastric ulcer, unspecified as acute or chronic, without hemorrhage or perforation; K44.9 Diaphragmatic hernia without obstruction or gangrene; C25.9 Malignant neoplasm of pancreas, unspecified; C78.7 Secondary malignant neoplasm of liver and intrahepatic bile duct; I10 Essential (primary) hypertension; E11.9 Type 2 diabetes mellitus without complications; Z79.84 Long term (current) use of oral hypoglycemic drugs; Z79.899 Other long term (current) drug therapy
CPT/HCPCS: 43239; 82947; 88305; 88342; J2704

== ENCOUNTER → 2025-03-02 07:48 | Outpatient (BNV) | payer MEDICAID, SELFPAY | PROVIDERS: PCP Physician Assistant; Visit Provider Internal Medicine | DX: R10.9 Unspecified abdominal pain (principal); D64.9 Anemia, unspecified; K25.9 Gastric ulcer, unspecified as acute or chronic, without hemorrhage or perforation; K92.1 Melena | CPT/HCPCS: 43239 ==

== ENCOUNTER 2025-04-04 12:22 | Outpatient (AMB) | payer MEDICAID, SELFPAY ==
--- NOTE | 2025-04-04 12:28 | MHC.OFFVIS ---
Vital Signs 04/04/25 12:31 Height 5 ft 6 in Weight 127 lb 13.89 oz BMI 20.6 BP 141/86 H Blood Pressure Location Lt brachial Position Sitting Pulse 56 Intake Visit Reasons: 4 week follow up Intake Note: Dylon presents in the office as a 4 week follow up. CC: States that he is not having any complaints at this time. Coordinator Of Rehabilitation Services Required: Yes Allergies No Known Allergies Allergy (Verified 04/04/25 12:31) HPI Comments Details: 64 y.o M with PMH of metastatic pancreatic ca 12/[address] Case, who has been referred to our office of abd pain and melena. Pt reports burning abd pain that started almost 2 months ago. Intermittent. Not related to food but does note decreased appetite. No N/V. No diarrhea. Stools dark but unsure if from PO iron. Labs reviewed with mild anemia and iron deficiency - ferritin of 4. [place] 07/2024 (Dr Golden) Good prep. 5 mm cecal polyp. Diverticulosis. States the reason to seek referral here was he was not able to get an early date for EGD at [facility]. Labs and imaging reviewed. Also has likely metastatic liver lesions as well as mild CBD obstruction from mass effect. LFTs normal 01/2025. Pt says is switching therapy and will be re-imaged in 2 months - plan for procedure if size of lesion/mass effect not improved. He is also being seen at [facility] and [facility] as second opinion for panc adenoca. 03/02/25:EGD Normal esophagus Gastric ulcer (biopsy) Food in stomach Normal duodenum (biopsy)?? A. Duodenum, biopsy: Duodenal mucosa with preserved villi and no specific change. B. Gastric antrum, greater curvature, biopsy: Chronic gastritis with mild-moderate activity and superficial bacteria suspicious for H. pylori; negative for high-grade dysplasia and carcinoma. C. Gastric antrum, lesser curvature, biopsy: Chronic gastritis with moderate activity and superficial bacteria suspicious for H. pylori; negative for high-grade dysplasia and carcinoma. D. Gastric incisura, biopsy: Chronic gastritis with mild-moderate activity and superficial bacteria suspicious for H. pylori; negative for high-grade dysplasia and carcinoma. E. Gastric body, greater curvature, biopsy: Gastric body mucosa with minimal chronic inactive gastritis, and superficial bacteria suspicious for H. pylori; negative for high-grade dysplasia and carcinoma. F. Gastric body, lesser curvature, biopsy: Chronic gastritis with mild-moderate activity and superficial bacteria suspicious for H. pylori; negative for high-grade dysplasia and carcinoma. G. Gastric cardia, ulcer, biopsy: Chronic gastritis with mild-moderate activity and superficial bacteria suspicious for H. pylori; negative for high-grade dysplasia and carcinoma 04/04/25: Here for post EGD follow up. Reviewed results. Pt cont on pantoprazole 40 once daily. Now seeing Dr Mccauley at [facility] for second opinion and getting injectable treatment from his office. H Pylori positive. Pt reports already taking too many pills and now going to reading for treatments so hesitant to start quad therapy at this time. Would also like to confirm ok from Onc standpoint. [facility] Medical History Diabetes Pancreatic adenocarcinoma Gout Hypertension Swelling of knee joint, left Social History Are you a primary long term acute care registered nurse to a significant other at home: No Do you presently have visiting nurse or other home services: No Patient Tobacco Use Status: Former Tobacco user Review of Systems Const All systems reviewed & are unremarkable except as noted in HPI and below Physical Exam Vital Signs: Last Vital Signs Pulse 56 04/04/25 12:31 BP 141/86 H 04/04/25 12:31 BMI result Body Mass Index 20.6 No apparent distress Nonicteric Abdomen soft, nondistended Alert and oriented x3, normal gait Assessment & Plan Assessment & Plan (1) Abdominal pain: Code(s): R10.9 - Unspecified abdominal pain Category: Medical (2) Metastasis to liver: Code(s): C78.7 - Secondary malignant neoplasm of liver and intrahepatic bile duct Category: Medical (3) Pancreatic adenocarcinoma: Code(s): C25.9 - Malignant neoplasm of pancreas, unspecified Category: Medical (4) Anemia: Code(s): D64.9 - Anemia, unspecified Category: Medical Plan 1. Gastric ulcer 2. H Pylori Reviewed will need to cont high dose omeprazole x 8-12 weeks and then 20 once daily. H Pylori eradication. As per pts request, will confirm with his oncologist that ok to proceed with quad therapy. Instructions for bismuth based quad therapy were reviewed in anticipation of treatment. Will set up follow up for [facility] based on correspondence from his oncologist Dr Kevyn Mccauley Coding Level of Care Code Est Pt Level 3 (80190) Diagnoses Abdominal pain R10.9 Metastasis to liver C78.7 Pancreatic adenocarcinoma C25.9 Anemia D64.9
[2025-04-04 12:31] VITALS: BP 141/86; PULSE 56; BMI 20.6
--- OUTSIDE RECORDS SUMMARY | 2025-04-04 13:49 | XMS_ITS | Encounter Summary ---
Author Organization [facility] Address [address] [place] [address] Care Team Providers Care Res Habilitation Assistant Name Role Phone Deneen Beltran PA-C Primary Care Provid er Encounter Details Date Type Department Care Team Description 03/09/2024 Social Work [facility] Oncology Services [address] [place] [address] Shaylee Perez [facility] Social History Tobacco Use Types Packs/Day Years [...] on filedocumented in this encounter Care Teams Res Habilitation Assistant Relationship Specialty Start Date End Date Deneen Beltran PA-C [address] [place] [phone] PCP - General Physician National Facilities Manager 12/17/23 documented as of this encounter
--- OUTSIDE RECORDS SUMMARY | 2025-04-04 13:49 | XMS_ITS | Clinical Summary ---
Author Organization [facility] Address [address] [place] [address] Care Team Providers Care Marking Clerk Name Role Phone Deneen Beltran PA-C Primary [...] drowsiness). 60 tablet 0 04/15/2024 Active Benadryl niip-Cuuwrj-Wstiqwjj -Lidocaine Visc mouth wash 1:1:1:1 Swish and [...] age to complete this topic Care Teams Marking Clerk Relationship Specialty Start Date End Date Deneen Beltran PA-C [address] [place] [phone] PCP - General Physician Air Compressor Mechanic 12/17/23
--- OUTSIDE RECORDS SUMMARY | 2025-04-04 13:49 | XMS_ITS | Encounter Summary ---
Author Organization [facility] Address [address] [place] [address] Care Team Providers Care Search Marketing Analyst Name Role Phone Deneen Beltran PA-C Primary Care Provider + [phone] Reason for Visit * Reason Comments Medication Issues Encounter Details Date Type Department Care Team ([facility] st Contact Info) Description 03/17/2020 Interim Notes [address] [phone] [address] Social History Tobacco Use Types Packs/Day Years [...] Care Team (Late st Contact Info) Description 04/19/2025 1:40 PM EDT Office Visit [facility] [address] [place] [phone] [facility] [address] [place] [address] documented as of this encounter Visit Diagnoses Not on filedocumented in this encounter Care Teams Search Marketing Analyst Relationship Specialty Start Date End Date Deneen Beltran PA-C [address] [place] [address] PCP - General Internal Medicine 11/03/23 documented as of this encounter
--- OUTSIDE RECORDS SUMMARY | 2025-04-04 13:49 | XMS_ITS | Clinical Summary ---
Author Organization [employer] [facility] Address [address] [place] [address] 7 [place] [address] Care Team Providers Care Design Agent Name Role Phone Unavailable Primary Care Provider [...]
--- OUTSIDE RECORDS SUMMARY | 2025-04-04 13:49 | XMS_ITS | Encounter Summary ---
Author Organization [employer] Address [address] [place] [address] Care Team Providers Care Clinical Pathologist Name Role Phone Deneen Beltran Primary Care [...] Care Team (Late st Contact Info) Description 04/22/2025 2:30 PM EDT Appointment [facility] Infusion Center [address] [place] [phone] 05/20/2025 2:45 PM EDT Office Visit [facility] Hematology Oncology [address] [place] [phone] Kurt Case MD [address] [place] [phone] documented as of this encounter Visit Diagnoses Not on filedocumented in this encounter Care Teams Clinical Pathologist Relationship Specialty Start Date End Date Deneen Beltran PA [address] [place] [address] PCP - General 11/12/23 documented as of this encounter
--- OUTSIDE RECORDS SUMMARY | 2025-04-04 13:49 | XMS_ITS | Encounter Summary ---
Author Organization [employer] Address [address] [place] [address] Care Team Providers Care Treatment Coordinator Name Role Phone Deneen Beltran Primary Care Provider Encounter Details Date Type Department Care Team (Late Contact Info) Description 09/28/2024 9:45 AM EDT Hospital Encounter TH HISTORIC ENCOUNTERS EASTERN CONVERSION ONLY Kurt Case MD [address] [place] [phone] Social History Tobacco Use Types Packs/Day Years [...] Encounters Date Type Department Care Team (Late Contact Info) Description 04/22/2025 2:30 PM EDT Appointment [facility] Infusion Center [address] [phone] 05/20/2025 2:45 PM EDT Office Visit [facility] Hematology Oncology [address] [place] [phone] Kurt Case MD [address] [place] [phone] documented as of this encounter Visit Diagnoses Not on filedocumented in this encounter Care Teams Treatment Coordinator Relationship Specialty Start Date End Date Deneen Beltran PA [address] [place] [address] PCP - General 11/12/23 documented as of this encounter
--- OUTSIDE RECORDS SUMMARY | 2025-04-04 13:49 | XMS_ITS | Encounter Summary ---
Author Organization [employer] [facility] Address [address] [facility] 7 [place] [address] Care Team Providers Care Pad Extraction Tender Name Role Phone Unavailable Primary Care Provider Unavailabl e Encounter Details Date Type Department Care Team (Latest Contact Info) Description 06/15/2019 Abstract [facility] CONVERSIONS Dental, Provider, DDS Social History Tobacco [...]
--- OUTSIDE RECORDS SUMMARY | 2025-04-04 13:49 | XMS_ITS | Encounter Summary ---
Author Organization [employer] Address [address] [place] [address] Care Team Providers Care Wedding Cake Designer Name Role Phone Deneen Beltran Primary Care [...] Info) Description 04/22/2025 2:30 PM EDT Appointment [facility] Infusion Center [address] [place] [phone] 05/20/2025 2:45 PM EDT Office Visit [facility] Hematology Oncology [address] [place] [phone] Kurt Case MD [address] [place] [phone] documented as of this encounter Visit Diagnoses Not on filedocumented in this encounter Care Teams Wedding Cake Designer Relationship Specialty Start Date End Date Deneen Beltran PA [address] [place] [address] PCP - General 11/12/23 documented as of this encounter
--- OUTSIDE RECORDS SUMMARY | 2025-04-04 13:49 | XMS_ITS | Encounter Summary ---
Author Organization [employer] [facility] Address [address] [place] [address] 7 [place] [address] Care Team Providers Care Procurement Clerk Name Role Phone Unavailable Primary Care Provider [...]
--- OUTSIDE RECORDS SUMMARY | 2025-04-04 13:49 | XMS_ITS | Encounter Summary ---
Author Organization [employer] Address [address] [place] [address] Care Team Providers Care Coke Wheeler Name Role Phone Deneen Beltran Primary Care [...] arrived today for chemotherapy. Denies need for parts interpreter machines. States everything is fine. Stable assessment [...] Info) Description 04/22/2025 2:30 PM EDT Appointment [facility] Infusion Center [address] [place] [phone] 05/20/2025 2:45 PM EDT Office Visit [facility] Hematology Oncology [address] [place] [phone] Kurt Case MD [address] [place] [phone] documented as of this encounter Visit Diagnoses Not on filedocumented in this encounter Care Teams Coke Wheeler Relationship Specialty Start Date End Date Deneen Beltran PA [address] [place] [address] PCP - General 11/12/23 documented as of this encounter
--- OUTSIDE RECORDS SUMMARY | 2025-04-04 13:49 | XMS_ITS ---
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 Other Current Plans FERUMOXYTOL ( FERAHEME ) 510 mg IVPB* Plan Start Date:03/15/2025 Plan Provider:Kurt Case MD Linked Problems Iron deficiency anemia due t o chronic blood loss Treatment Medications No medications scheduled. OCTREOTIDE DEPOT ( SANDOSTATIN LAR ) EVERY 4 WEEKS* Plan Start Date:02/23/2025 Plan Provider:Kurt Case MD Linked Problems Primary pancreatic neuroendo crine tumor (CMS/HCC V28) Treatment Medications octreotide (SandoSTATIN LAR) Past Plans Oncology Treatment Plan Name Start Date Discontinue Date Treatment Medications Discontinue Reason Plan Provider Cycles Albumin-bound PACLitaxel / Gemcitabine 4 02/22/2025 gemcitabine (GEMZAR)gemcit abine (GEMZAR) chemo IVPB in 250 mL (38 mg/mL)PACLitax el Protein Bound (ABRAXANE)pacl itaxel protein-bound (ABRAXANE) - Therapy Complete Kurt Case MD 6 of 6 cycles started Radiation Treatments * No radiation treatments are documented for this patient in [facility]. Treatments may have been administered in another system.
--- OUTSIDE RECORDS SUMMARY | 2025-04-04 13:49 | XMS_ITS | Encounter Summary ---
Author Organization [facility] Address [address] [place] [address] Care Team Providers Care Graphic Design Specialist Name Role Phone Deneen Beltran PA-C Primary Care Provid er Encounter Details Date Type Department Care Team Description 08/20/2024 Social Work [facility] Oncology Services [address] [place] [address] Shaylee Perez [facility] Social History Tobacco Use Types Packs/Day Years [...] on filedocumented in this encounter Care Teams Graphic Design Specialist Relationship Specialty Start Date End Date Deneen Beltran PA-C [address] [place] [phone] PCP - General Physician Master Control Technician 12/17/23 documented as of this encounter
--- OUTSIDE RECORDS SUMMARY | 2025-04-04 13:49 | XMS_ITS | Encounter Summary ---
Author Organization [employer] Address [address] [place] [address] Care Team Providers Care Early Childhood Education Instructor Name Role Phone Deneen Beltran Primary Care Provider Encounter Details Date Type Department Care Team (Late Contact Info) Description 09/02/2024 10:00 AM EDT Hospital Encounter TH HISTORIC ENCOUNTERS EASTERN CONVERSION ONLY Kurt Case MD [address] [place] [phone] Social History Tobacco Use Types Packs/Day Years [...] Info) Description 04/22/2025 2:30 PM EDT Appointment [facility] Infusion Center [address] [phone] 05/20/2025 2:45 PM EDT Office Visit [facility] Hematology Oncology [address] [place] [phone] Kurt Case MD [address] [place] [phone] documented as of this encounter Visit Diagnoses Not on filedocumented in this encounter Care Teams Early Childhood Education Instructor Relationship Specialty Start Date End Date Deneen Beltran PA [address] [place] [address] PCP - General 11/12/23 documented as of this encounter
--- OUTSIDE RECORDS SUMMARY | 2025-04-04 13:49 | XMS_ITS | Encounter Summary ---
Author Organization [facility] Address [address] [place] [address] Care Team Providers Care Retail Greeting Card Merchandiser Name Role Phone Deneen Beltran PA-C Primary Care Provider [phone] Reason for Visit * Reason Comments Care Coordination Lnmu-am-Bgea Visit Encounter Details Date Type Department Care Team ([facility] st Contact Info) Description 04/29/2024 Interim Notes [facility] [address] [place] [phone] Katherine Falk [address] [place] [address] Social History Tobacco Use Types Packs/Day Years [...] Description 04/19/2025 1:40 PM EDT Office Visit [facility] [address] [place] [phone] Damien Guadalupe, [facility] [address] [place] [address] documented as of this encounter Goals Goal Patient Goal Type Associated Problems Recent Progress Patient-Stated? Author Blood Pressure < 130/80 Blood Pressure 114/80(2024 2:38 PM EDT) No Baron Ling PharmD Exercise 3x per [...] documented as of this encounter Care Teams Retail Greeting Card Merchandiser Relationship Specialty Start Date End Date Deneen Beltran PA-C [address] [place] [address] PCP - General Internal Medicine 11/03/23 documented as of this encounter
--- OUTSIDE RECORDS SUMMARY | 2025-04-04 13:49 | XMS_ITS | Clinical Summary ---
Author Organization [facility] Address [address] [place] [address] Phone Care Team Providers Care Manager Strategic Name Role Phone Deneen Beltran Primary Care [...] ondansetron ODT (ZOFRAN-ODT) 4 mg disintegrating tablet [facility]/pharmacy #[id number] [place], [place] [phone] 10 Each 0 4 Sig: DISSOLVE 1 [...] tabletIndications: Malignant neoplasm of head of pancreas ([facility] V24, [facility] V28) Take 1500 mg every morning and 1000 [...] f pancreas (CMS/HCC V24, CMS/HCC V28) 12/26/2023 Encounters Date Type Department Care Team Description 03/25/2025 2:29 PM EDT - 03/25/2025 11:59 PM EDT Hospital Encounter [facility] [address] [facility] 2nd [place] [phone] Kurt Case MD 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) Discharge Disposition: Home or Self Care 03/25/2025 2:15 PM EDT Office Visit [facility] [address] [place] [phone] Kurt Case MD Iron deficiency anemia due to chronic blood loss (Primary Dx) 03/18/2025 1:29 PM EDT - 03/18/2025 11:59 PM EDT Hospital Encounter [facility] [address] [place] [phone] Kurt Case MD Iron deficiency anemia due to chronic blood loss (Primary Dx) Discharge Disposition: Home or Self Care 03/15/2025 1:28 PM EDT - 03/15/2025 11:59 PM EDT Hospital Encounter [facility] [address] [place] [phone] Kurt Case MD Iron deficiency anemia due to chronic blood loss (Primary Dx) Discharge Disposition: Home or Self Care 03/04/2025 Telephone [facility] [address] [place] [phone] Kurt Case MD 02/23/2025 12:55 PM EDT - 02/23/2025 11:59 PM EDT Hospital Encounter [facility] [address] [place] [phone] Kurt Case MD Primary pancreatic neuroendocrine tumor (CMS/HCC V28) (Primary Dx) Discharge Disposition: Home or Self Care 02/11/2025 2:30 PM EDT Office Visit [facility] [address] [place] [phone] Kurt Case MD Malignant neoplasm of head of pancreas (CMS/HCC V24, CMS/HCC V28) (Primary Dx); Primary pancreatic neuroendocrine tumor (CMS/HCC V28) 01/14/2025 2:45 PM EST Office Visit [facility] [address] [place] [phone] Kurt Case MD Malignant neoplasm of head of pancreas (CMS/HCC V24, CMS/HCC V28) (Primary Dx); Primary pancreatic neuroendocrine tumor (CMS/HCC V28) from Last 3 Months Immunizations Name Administration Dates Next Due Pfizer SARS-CoV-2 COVID-19, mRNA, LNP-S, preservative free 12/21/2021 Medical History Medical History Date Comments Diabetes mellitus ([facility] V24, [facility] V28) Pancreatic cancer ([facility] V24, [facility] V28) Hypertension Social History Tobacco Use Types Packs/Day [...] Sign Reading Time Taken Comments Blood Pressure 138/97 03/25/2025 2:42 PM EDT Pulse 68 03/25/2025 2:42 PM EDT Temperature 36.4 ??C (97.6 ??F) 03/25/2025 2:42 PM ED T Respiratory Rate 16 03/25/2025 2:42 PM EDT Oxygen Saturation 100% 03/25/2025 2:42 PM EDT Inhaled Oxygen Concentration - - Weight 57.2 kg (126 lb) 03/25/2025 1:55 PM EDT Height 165.1 cm (5' 5 ) 12/04/2024 2:59 PM EST Body Mass Index 20.97 12/04/2024 2:59 PM EST Plan of Treatment Upcoming Encounters Date Type Department Care Team (Late st Contact Info) Description 04/22/2025 2:30 PM EDT Appointment [facility] [address] [phone] 05/20/2025 2:45 PM EDT Office Visit [facility] [address] [place] [phone] Kurt Case MD [address] [place] [phone] Health Maintenance Due Date Last Done Comments Diabetes: Annual Foot Exam 1972 Diabetes: Annual Retina Eye Exam 1972 Hepatitis A Vaccines (1 of 2 - Risk 2-dose series) 1981 Hepatitis B Vaccines (3 of 3 - Risk 3-dose series) 07/13/2020 02/09/2020, 01/13/2020 RSV Immunization Adult Patients (1 - Risk 60-74 years 1-dose series) 2022 Colorectal Cancer Screening: Colonoscopy 11/03/2022 HIV Screening 11/03/2022 Social Influencers of Health Screening 11/03/2022 Diabetes: Annual Urine Albumin-Creatinine Ratio (uACR) 12/09/2024 12/09/2023, 08/20/2022, 01/05/2021, Additional history exists COVID-19 Vaccine (6 - Pfizer risk season) 2025 09/17/2024, 11/11/2022, 12/21/2021, Additional history exists Diabetes: Blood Sugar Control [...] Completed 09/10/2024, , 11/11/2022, Additional history exists HIB Vaccines Aged Out [...] age to complete this topic Meningococcal B Vaccine Aged Out No l onger eligible based on patient's age to complete [...] 3:09 PM EST Primary pancreatic neuroendocrine tumor ([facility]/HCC V28) IRON AND TIBC Routine 01/14/2025 3:09 PM EST Primary pancreatic neuroendocrine tumor ([facility]/HCC V28) FERRITIN Routine 01/14/2025 3:09 PM EST Primary pancreatic neuroendocrine tumor ([facility]/HCC V28) COMPREHENSIVE METABOLIC PANEL Routine 01/14/2025 3:09 PM EST Primary pancreatic neuroendocrine tumor ([facility]/HCC V28) CBC AND DIFFERENTIAL Routine 01/14/2025 3:09 PM EST Primary pancreatic neuroendocrine tumor ([facility]/HCC V28) from Last 3 Months Results * (ABNORMAL) CBC auto differential (01/14/2025 3:09 PM EST) WBC 5.3 4.8 - 10.8 K/[facility] LAB HEMETOLOGY METHOD 01/14/2025 4:38 PM EST [facility] RBC 4.20(L) 4.50 - 5.50 M/[facility] LAB HEMETOLOGY METHOD 01/14/2025 4:38 PM [facility] Hemoglobin 11.9(L) 13.5 - 17.5 g/dL LAB HEMETOLOGY METHOD 01/14/2025 4:38 PM [facility] Hematocrit 37.7(L) 42.0 - 54.0 % LAB HEMETOLOGY METHOD 01/14/2025 4:38 PM [facility] MCV 90.6 79.0 - 98.0 FL LAB HEMETOLOGY METHOD 01/14/2025 4:38 PM [facility] MCH 28.6 27.0 - 32.0 pcg LAB HEMETOLOGY METHOD 01/14/2025 4:38 PM [facility] MCHC 31.6(L) 32.0 - 37.0 g/dL LAB HEMETOLOGY METHOD 01/14/2025 4:38 PM [facility] RDW 15.0 11.0 - 15.0 % LAB HEMETOLOGY METHOD 01/14/2025 4:38 PM [facility] Platelets 221 130 - 400 K/mcL LAB HEMETOLOGY METHOD 01/14/2025 4:38 PM [facility] MPV 9.8 7.0 - 11.0 FL LAB HEMETOLOGY METHOD 01/14/2025 4:38 PM [facility] NRBC 0.0 <1.0 % LAB HEMETOLOGY METHOD 01/14/2025 4:38 PM [facility] NRBC Absolute 0.00 <0.10 K/mcL LAB HEMETOLOGY METHOD 01/14/2025 4:38 PM [facility] Neutrophils Relative 55.5 % LAB HEMETOLOGY METHOD 01/14/2025 4:38 PM [facility] Lymphocytes Relative 24.7 % LAB HEMETOLOGY METHOD 01/14/2025 4:38 PM [facility] Monocytes Relative 9.3 % LAB HEMETOLOGY METHOD 01/14/2025 4:38 PM EST [facility] Eosinophils Relative 9.7 % LAB HEMETOLOGY METHOD 01/14/2025 4:38 PM [facility] Basophils Relative 0.6 % LAB HEMETOLOGY METHOD 01/14/2025 4:38 PM [facility] Immature Granulocytes Relative 0.2 % LAB HEMETOLOGY METHOD 01/14/2025 4:38 PM [facility] Neutrophils Absolute 2.92 1.50 - 7.00 K/mcL LAB HEMETOLOGY METHOD 01/14/2025 4:38 PM [facility] Lymphocytes Absolute 1.30 1.00 - 5.00 K/mcL LAB HEMETOLOGY METHOD 01/14/2025 4:38 PM [facility] Monocytes Absolute 0.49 0.20 - 1.00 K/mcL LAB HEMETOLOGY METHOD 01/14/2025 4:38 PM EST [facility] Eosinophils Absolute 0.51(H) 0.00 - 0.50 K/mcL LAB HEMETOLOGY METHOD 01/14/2025 4:38 PM [facility] Basophils Absolute 0.03 0.00 - 0.20 K/mcL LAB HEMETOLOGY METHOD 01/14/2025 4:38 PM [facility] Immature Granulocytes Absolute 0.01 0.00 - 0.03 K/mcL LAB HEMETOLOGY METHOD 01/14/2025 4:38 PM [facility] Blood Venous blood specimen / Unknown Venipuncture / Unknown 01/14/2025 3:09 PM EST 01/14/2025 4:29 PM EST Kurt Case MD LAB BLOOD ORDERABLES Final Result [facility] [address] [place] [address], * (ABNORMAL) Iron and TIBC (01/14/2025 3:09 PM EST) Iron 25(L) 50 - 160 mcg/dL LAB CHEMISTRY METHOD 01/14/2025 4:53 PM [facility] TIBC 388 250 - 450 mcg/dL LAB CHEMISTRY METHOD 01/14/2025 4:53 PM [facility] Iron Saturation 6(L) 20 - 50 % LAB CHEMISTRY METHOD 01/14/2025 4:53 PM EST [facility] Blood Venous blood specimen / Unknown Venipuncture / Unknown 01/14/2025 3:09 PM EST 01/14/2025 4:28 PM EST Kurt Case MD LAB BLOOD ORDERABLES Final Result Performing Organization Address [facility]/ZIP Co de Phone Number [facility] [address] [place] [address], [place] [phone] * (ABNORMAL) Ferritin (01/14/2025 3:09 PM EST) Pathologist [facility] Ferritin 4(L) 26 - 388 ng/mL LAB CHEMISTRY METHOD 01/14/2025 5:01 PM EST [facility] Blood Venous blood specimen / Unknown Venipuncture / Unknown 01/14/2025 3:09 PM EST 01/14/2025 4:28 PM EST Kurt Case MD LAB BLOOD ORDERABLES Final Result [facility] [address] [place] [address], [place] [phone] * (ABNORMAL) Comprehensive metabolic panel (01/14/2025 3:09 PM EST) Pathologist [facility] Sodium 139 133 - 145 mmol/L LAB CHEMISTRY METHOD 01/14/2025 4:53 PM EST [facility] Potassium 4.3 3.5 - 5.5 mmol/L LAB CHEMISTRY METHOD 01/14/2025 4:53 PM [facility] Chloride 108 96 - 110 mmol/L LAB CHEMISTRY METHOD 01/14/2025 4:53 PM [facility] CO2 26 21 - 32 mmol/L LAB CHEMISTRY METHOD 01/14/2025 4:53 PM [facility] Anion Gap 5 3 - 11 LAB CHEMISTRY METHOD 01/14/2025 4:53 PM [facility] Glucose 266(H) 70 - 100 mg/dL LAB CHEMISTRY METHOD 01/14/2025 4:53 PM [facility] BUN 21 5 - 25 mg/dL LAB CHEMISTRY METHOD 01/14/2025 4:53 PM [facility] Creatinine 1.35(H) 0.70 - 1.30 mg/dL LAB CHEMISTRY METHOD 01/14/2025 4:53 PM [facility] eGFR 59(L) >=60 mL/min/1. 73m2 LAB CHEMISTRY METHOD 01/14/2025 4:53 PM [facility] Comment:Calculation based on the??Chronic Kidney Disease Epidemiology Collaboration (CKD-EPI) equation refit??without adjustment for race. BUN/Creatinine Ratio 15.6 LAB CHEMISTRY METHOD 01/14/2025 4:53 PM [facility] Calcium 9.3 8.5 - 10.5 mg/dL LAB CHEMISTRY METHOD 01/14/2025 4:53 PM [facility] AST (SGOT) 35 10 - 42 unit/L LAB CHEMISTRY METHOD 01/14/2025 4:53 PM [facility] ALT (SGPT) 39 10 - 60 unit/L LAB CHEMISTRY METHOD 01/14/2025 4:53 PM [facility] Alkaline Phosphatase 101 42 - 121 unit/L LAB CHEMISTRY METHOD 01/14/2025 4:53 PM [facility] Total Protein 7.0 6.0 - 8.0 g/dL LAB CHEMISTRY METHOD 01/14/2025 4:53 PM EST [facility] Albumin 4.2 3.2 - 5.0 g/dL LAB CHEMISTRY METHOD 01/14/2025 4:53 PM EST [facility] Total Bilirubin 0.5 0.0 - 1.4 mg/dL LAB CHEMISTRY METHOD 01/14/2025 4:53 PM EST [facility] Blood Venous blood specimen / Unknown Venipuncture / Unknown 01/14/2025 3:09 PM EST 01/14/2025 4:28 PM EST us Kurt Case MD LAB BLOOD ORDERABLES Final Result [facility]) [facility] [address] [place] [address], [place] [phone] from Last 3 Months Insurance MEDICAID - [place] Advance Directives Documents on File Type Date Recorded Patient Tongue Trimmer Expl anation Health Care Decision (hx) 11/06/2021 [...] (hx) 11/06/2021 AD JOEL DIRECTIVE Care Teams Manager Strategic Relationship Specialty Start Date End Date Deneen Beltran PA [address] [place] [phone] PCP - General 11/12/23
--- OUTSIDE RECORDS SUMMARY | 2025-04-04 13:49 | XMS_ITS ---
Author Organization [facility] Address [address] [place] [phone] Care Team Providers Care Merchandising Lead Name Role Phone Deneen Beltran PA-C Primary Care Provid er Active Problems Problem Noted Date Diagnosed Date Malignant neoplasm of head of pancreas Current Oncology Plans [facility] BCN OP GEMCITABINE / ALBUMIN-BOUND PACLITAXEL (4 [...] Treatment Medications Discontinue Reason Plan Provider Cycles [facility] BCN OP MODIFIED FOLFIRINOX 4 04/23/2024 albuterol [...] treatments are documented for this patient in [facility]. Treatments may have been administered in another system.
--- OUTSIDE RECORDS SUMMARY | 2025-04-04 13:50 | XMS_ITS | Clinical Summary ---
Author Organization [facility] Address [address] [place] [address] Care Team Providers Care Personal Lines Insurance Advisor Name Role Phone Deneen Beltran PA-C Primary Care Provider Source Comments PLEASE NOTE, if this patient is a minor, it may be UNLAWFUL to discuss sensitive information that is contained in these records (such as FAMILY PLANNING, MENTAL HEALTH or SUBSTANCE ABUSE) with the minor patient's parent or other person without the patient's specific authorization.[facility] Allergies Active Allergy Reactions Criticality Noted Date Comments Empagliflozin Other (See Comments) 05/24/2020 c/o: dysuria Metformin Diarrhea 09/02/2019 c/o:diarrhea Medications miscellaneous medical supply miscIndications:U ncontrolled type 2 diabetes mellitus with hyperglycemia (HCC-CMS) by miscellaneous route once daily Diabetic shoe inserts, disp 3 pairs, dx diabetes with peripheral neuropathy 3 Each 01/16/20 22 Active miscellaneous medical supply miscIndications:U ncontrolled type 2 diabetes mellitus with hyperglycemia (HCC-CMS) by miscellaneous route once daily Diabetic shoes, disp 1 pair, dx diabetes with peripheral neuropathy 1 Each 01/16/20 22 Active blood pressure test kit-large SMBP Program - testing 3x/week 1 Kit 02/11/20 23 Active VITAMIN D3 25 mcg (1,000 unit) capsuleIndication s:Vitamin D deficiency TAKE 1 CAPSULE BY MOUTH ONCE DAILY 90 Capsule 3 07/24/20 23 Active blood-glucose meter monitoring kitIndications:Un controlled type 2 diabetes mellitus with hyperglycemia (HCC-CMS) Use to check BG 1x/d DX E11.9 Freestyle Lite Old meter not working 1 Each 08/27/20 23 Active colchicine 0.6 mg tabletIndications :Gouty arthritis Take 1 Tablet by mouth once daily Daily for 6 months 90 Tablet 1 11/04/20 23 Active thiamine (VITAMIN B-1) 100 mg tabletIndications :Alcohol abuse, daily use Take 1 Tablet by mouth once daily 30 Tablet 6 11/04/20 23 Active folic acid (FOLVITE) 1 mg tabletIndications :Alcohol abuse, daily use Take 1 Tablet by mouth once daily 30 Tablet 6 11/04/20 23 Active naltrexone (DEPADE) 50 mg tablet Take 50 mg by mouth every morning [facility] [place], [place] [phone] 30 Each 0 30 Sig: TAKE 1 TABLET BY MOUTH EVERY MORNINGSource: Surescripts (Fill History, Ambulatory)Autho rized by: MAURA MCNEAL 12/02/19 24 Active oxyCODONE (ROXICODONE) 5 mg tablet [facility]/pharmacy #[address] [place] [address] 60 Each 0 Days Supply: 10Sig: TAKE 1 TABLET (5 MG TOTAL) BY MOUTH EVERY 4 (FOUR) HOURS NEEDED FOR PAIN (MAY CAUSE DROWSINESS).Sour ce: Surescripts (Fill History, Ambulatory)Autho rized by: UMESH LOAIZA 04/15/20 24 Active busPIRone (BUSPAR) 10 mg tablet Take 10 mg by mouth 2 (two) times daily [facility] [place], [place] [phone] 60 Each 1 30 Sig: TAKE 1 TABLET BY MOUTH TWICE A DAY FOR ANXIETYSource: Surescripts (Fill History, Ambulatory)Autho rized by: MAURA MCNEAL 04/18/20 24 Active ondansetron HCL (ZOFRAN) 8 mg tablet Take 8 mg by mouth every 8 (eight) hours as needed for nausea [facility]/pharmacy #[id number] [place] [address] 30 Each 2 Days Supply: 10Sig: TAKE 1 TABLET BY MOUTH EVERY 8 HOURS NEEDED FOR NAUSEASource: Surescripts (Fill History, Ambulatory)Autho rized by: KURT CASE 03/01/20 24 Active ondansetron ODT (ZOFRAN-ODT) 4 mg disintegrating tablet [facility]/pharmacy [address] [place] [address] 10 Each 0 4 Sig: DISSOLVE 1 TABLET ON TONGUE 3 TIMES DAILYSource: Surescripts (Fill History, Ambulatory)Autho rized by: KRUNAL GAVIN 04/13/20 24 Active omeprazole (PRILOSEC) [address] capsule Take 40 mg by mouth [facility]/pharmacy #[address] [place] [address] 90 Each 2 Days Supply: 90Sig: TAKE 1 CAPSULE (40 MG TOTAL) BY MOUTH DAILY.Source: Surescripts (Fill History, Ambulatory) 04/05/20 24 Active lidocaine-priloca ine (EMLA) 2.5-2.5 % cream [facility]/pharmacy #[id number] [place], [place] [phone] 30 g 2 Days Supply: 15Sig: APPLY TO AFFECTED AREA EVERY DAY NEEDEDSource: Surescripts (Fill History, Ambulatory) 03/09/20 24 Active blood sugar diagnostic strips Use to test blood glucose once daily. (Freestyle Lite). 100 Each 3 09/08/20 24 Active lancets (FREESTYLE LANCETS) 28 gauge Use to test blood glucose once daily. (Freestyle Lancets). 100 Each 3 09/08/20 24 Active alcohol swabs Use to test blood glucose once daily. 100 Each 3 09/08/20 24 Active allopurinoL (ZYLOPRIM) 100 mg tabletIndications :Gouty arthritis TAKE 1 TABLET BY MOUTH EVERY DAY 90 Tablet 1 11/03/20 24 Active tamsulosin (FLOMAX) 0.4 mg 24 hr capsuleIndication s:Urinary retention with incomplete bladder emptying TAKE 1 CAPSULE BY MOUTH EVERY DAY 90 Capsule 1 11/14/20 24 Active methocarbamoL (ROBAXIN) 750 mg tablet TAKE 1 TABLET BY MOUTH 4 TIMES A DAY IF NEEDED,MUSCLE SPASMS(MAY CAUSE DROWSINESS)FOR UP TO 10 DAYS 10/07/20 24 Active atorvastatin (LIPITOR) 20 mg tabletIndications :Type 2 diabetes mellitus with hyperglycemia, with long-term current use of insulin ([facility]),Hyperli pidemia LDL goal <100 Take 1 Tablet by mouth nightly at bedtime For cholesterol 90 Tablet 3 12/07/19 25 Active olmesartan (BENICAR) 20 mg tabletIndications :Type 2 diabetes mellitus with diabetic microalbuminuria, without long-term current use of insulin ([facility]),Essenti al hypertension Take 1 Tablet by mouth every morning For blood pressure. 90 Tablet 1 03/23/20 25 Active dapagliflozin propanediol (FARXIGA) 10 mg tabIndications:Ty pe 2 diabetes mellitus with diabetic microalbuminuria, without long-term current use of insulin ([facility]) Take 1 Tablet by mouth every morning (Take with plenty of fluids throughout the day) 30 Tablet 5 03/23/20 25 Active SITagliptin phosphate (JANUVIA) 100 mg tabletIndications :Type 2 diabetes mellitus with diabetic microalbuminuria, without long-term current use of insulin ([facility]) Take 1 Tablet by mouth every morning For diabetes 30 Tablet 5 03/23/20 25 Active glipiZIDE (GLUCOTROL XL) 10 mg ER, 24 hour tabletIndications :Type 2 diabetes mellitus with diabetic microalbuminuria, without long-term current use of insulin ([facility]) Take 1 Tablet by mouth 2 (two) times daily with a meal SWALLOW TABLETS WHOLE, DO NOT CHEW, DIVIDE OR CRUSH. increased dosing - ok at 20 mg 180 Tablet 1 03/23/20 25 Active famotidine (PEPCID) 20 mg tablet Take 20 mg by mouth 2 (two) times daily (Prescribed by [facility]) 11/19/20 24 Active dapagliflozin propanediol (FARXIGA) 10 mg tabIndications:Ty pe 2 diabetes mellitus with hyperglycemia, with long-term current use of insulin ([facility]) Take 1 Tablet by mouth every morning (Take with plenty of fluids throughout the day) 30 Tablet 12/06/19 25 025 Discontin ued(Reord er (E-Cancel Not Sent)) SITagliptin phosphate (JANUVIA) 100 mg tablet Take 1 Tablet by mouth every morning 30 Tablet 5 12/07/19 25 025 Discontin ued(Reord er (E-Cancel Not Sent)) glipiZIDE (GLUCOTROL XL) 10 mg ER, 24 hour tabletIndications :Type 2 diabetes mellitus with hyperglycemia, with long-term current use of insulin ([facility]) Take 1 Tablet by mouth once daily with breakfast SWALLOW TABLETS WHOLE, DO NOT CHEW, DIVIDE OR CRUSH. decreased dosing 90 Tablet 1 12/07/19 025 Discontin ued(Reord er (E-Cancel Not Sent)) olmesartan (BENICAR) 20 mg tabletIndications :Type 2 diabetes mellitus with hyperglycemia, with long-term current use of insulin ([facility]),Minnie cruz hypertension Take 1 Tablet by mouth every morning 90 Tablet 1 12/07/19 25 025 Discontin ued(Reord er (E-Cancel Not Sent)) Active Problems Problem Noted Date Diagnosed Date Food insecurity 03/10/2025 Financial difficulties 03/10/2025 Malignant neoplasm of pancreas ([facility]) 025 Overview (02/03/2025): Seeing Dr. Hicks -oncology at [facility], Garrick Bagley MD primary oncology and also Mary Kate Stewart MD tub rider at [place]. Per [facility]: Diagnosis/treatment: Locally advanced pancreatic neuroendocrine cancer, diagnosed in 12/2023. He started FOLFIRINOX on 03/09/2024. We dose-reduce the oxaliplatin and irinotecan by 20% with cycle 3 on 04/07/2024. We discontinued FOLFIRINOX following cycle 3 due to GI toxicities. He started gemcitabine/Abraxane with a 20% dose reduction on 05/13/2024. He progressed with liver metastases in 10/2024. He started Xeloda/Temodar on 11/25/2024. Elevated liver enzymes 01/28/2024 Pancreatic mass ([facility]) 12/25/2023 Overview (01/28/2024): Kurt Case MD - 12/26/2023 1:00 PM EST Diagnosis/treatment: Pancreatic cancer, diagnosed in 12/2023. History of present illness: The patient is a 63-year-old alcohol abusing gentleman who underwent routine laboratory screening on 11/13/2023 which revealed LFTs with a total bilirubin 0.4, AST 44, ALT 67, and alkaline phosphatase 143. A hepatitis A/B/C panel on 11/17/2023 was unremarkable. A liver ultrasound on 12/03/2023 showed a 8.7 x 5.0 x 4.6 cm heterogeneously hypoechoic vascular mass in the region of the pancreatic head. An abdominal MRI with contrast 12/12/2023 showed a [...] heterogeneous pancreatic head mass was seen and biopsied and the cytology is pending. Marked dilatation of the common bile duct and pancreatic duct was seen. Atrophic pancreatic parenchyma was seen in the body and tail. A 1.5 cm duodenal (D3) ulcerative mass was seen (concerning for local extension of the pancreatic tumor into the duodenum) and biopsied and the cytology is pending. No regional lymphadenopathy was seen. He reports intermittent mild epigastric/right upper quadrant abdominal pain, not requiring analgesics. He reports an intact appetite and stable weight. He denies headaches or visual changes. He [...] currently unemployed and formerly worked in [employer]. He is . He has 2 daughters [...] edema. Skin: No rash. Neurologic: Normal gait. Impression/recommendation: The patient is a 63-year-old gentleman who presented in 12/2023 with a pancreatic cancer. A PET/CT has been ordered for staging. He is being evaluated by Dr. Tanvir Suresh for consideration of a definitive Whipple procedure. We would consider adjuvant FOLFIRINOX chemotherapy x 6 months. Gouty arthritis 03/14/2022 Alcohol abuse, daily use 03/14/2022 Mild peripheral polyneuropathy 01/16/2022 Type 2 diabetes mellitus wit h diabetic microalbuminuria, without long-term current use of insulin ([facility]) 09/02/2019 Overview (03/23/2025): DM dx: Unclear Glucometer: Bandwagonstyle Lite Current Diabetes RX: Glipizide XL 10 mg twice daily with a meal Dapagliflozin 10 mg daily every morning (take with plenty of fluids throughout the day) - microalbuminuria Januvia 100 mg daily GABRIELA-I/ARB: Olmesartan 20 mg daily Statin: atorvastatin 20 mg daily every evening Pneumococcal vaccine: PCV20 (03/26/23) PPSV23 (10/21/19) Diabetes foot exam: 12/24/24 with Mary MILLIGAN Normal pedal pulses, no trophic changes or ulcerative lesions, normal monofilament exam, and hygiene: good. Denies pain, numbness, tingling in feet. No foot ulcers, no toe or foot deformities. 03/26/23 per , no-show 08/12/24 with SRINI Hernandez Diabetes retinal exam: Patient reports missing follow-up appt in January 2025 at [facility], will call to reschedule. 01/30/24 at [facility] No active diabetic retinopathy, nuclear sclerosis OU the cataracts are mild and have minimal impact on vision at this time . Dry eye syndrome OU. Recommended artificial tears to use as directed . Presbyopia. Given new glasses RX today Laceration of right thumb 12/18/2017 Overview (12/18/2017): 12/13/17 [facility] ED for L thumb lac occurred at work. Dermabond applied, rec'd Tdap. Left elbow trauma 01/15/15 ? fracture distal humeral articular surface or coronoid process of ulna 01/28/2015 Overview (01/28/2015): X-rays at [facility] Normal findings on CTA chest 05/2014 at [facility] Diverticulosis of colon 03/01/2013 Overview (08/27/2013): Via Colonoscopy = normal repeat 10 yrs Essential hypertension 07/29/2008 H/O: gout Overview (08/28/2017): 06/18/17 [facility] ED c/o L elbow pain x 3 days. Xray shows recurrent/persistent effusion. C/w gouty arthritis, discharged w/ colchicine, Indocin ED (erectile dysfunction) Left knee pain Hyperlipidemia LDL goal <100 H/O ETOH abuse Acquired hallux valgus of left foot Eosinophilia Resolved Problems Problem Noted Date Diagnosed Date Resolved Date Acute allergic conjunctivitis of left eye 11/07/2017 07/20/2021 Overview (11/07/2017): 09/15/17 [facility] ED L eye conjunctivitis and viral URI. Given ibuprofen 600 mg and erythromycin ointment x 5 days Encounters Date Type Department Care Team Description 03/23/2025 2:40 PM EDT Office Visit [facility] [id number] [place] [phone] Baron Ling, PharmD Type 2 diabetes mellitus with diabetic microalbuminuria, without long-term current use of insulin ([facility]) (Primary Dx); Essential hypertension; Hyperlipidemia LDL goal <100 03/08/2025 Interim Notes [address] [phone] Mike Palmer, Community Health Worker 03/02/2025 Interim Notes [address] [phone] Chaya Proctor RN 03/01/2025 Interim Notes [address] [phone] Katherine Falk 02/28/2025 Interim Notes [address] [phone] Jody Denney 02/02/2025 2:40 PM EST Office Visit [address] [phone] Deneen Beltran PA-C Type 2 diabetes mellitus with hyperglycemia, with long-term current use of insulin ([facility]) (Primary Dx); Essential hypertension; Elevated liver enzymes; Malignant neoplasm of pancreas, unspecified location of malignancy (HCC-CMS) from Last 3 Months Immunizations Immunization Administration Dates Next Due Flu, Preservative Free 11/10/2023,2021,11/21/2021,09/05,10/21/2019,09/11/2017 Hep B, Adult/Adol (ENERGIX/RECOMBIVAX) 0,01/13/2020 INFLUENZA, SEASONAL, INJECTABLE 08/27/2013,11/13 Influenza (FLUCELVAX),injectable,mdck,pf 09/10/2024 Novel [id number], injectable 12/22/2009 PFIZER COVID VACCINE, PURPLE CAP, 12+ 12/21/2021 PNEUMOCOCCAL CONJUGATE PCV 2 0 (Prevnar) 03/26/2023 PNEUMOCOCCAL POLYSACCHARIDE PPV23 (Pneumovax 23) 10/21/2019 Pfizer-ExerosNTAtlas Guides COVID-19 Vac cine Bivalent, (LEIVA PFIZER-BIONTECH COVID-19 VACCINE BIVALENT, (LEIVA CAP 11/11/2022 TDAP 12/13/2017,11/13/2012 ZOSTER VACCINE, RECOMBINANT (SHINGRIX) 0,07/29/2019 Family History Medical History Relation Name Comments Hypertension Mother Relation Name Status Comments Brother Alive Daughter 1 Alive Daughter 2 Alive Father (Age 32) MVA Mother Alive Sister 1 Alive Sister 2 Alive Sister 3 Alive Sister 4 Alive Son Alive Social History Tobacco Use Types Packs/Day Years Used Date Smoking Tobacco: Former Smokeless Tobacco: Never Tobacco Cessation:Counseling Given: Not Answered Alcohol Use Standard Drinks/Week Comments Yes 6 (1 standard drink = 0.6 oz pur e alcohol) beer only. daily about 5-6 Social Connections Answer Date Recorded Connectedness 1 03/10/2025 Financial Resource Strain Answer Date R ecorded Financial Resource Strain 2 2024 Stress Answer Date Recorded Stress 1 03/10/2025 Physical Activity Answer Date Recorded Physical Activity 0 07/24/2019 Food Insecurity Answer Date Recorded Food 2 03/10/2025 Transportation Needs Answer Date Record ed Transportation 1 03/10/2025 Housing Stability Answer Date Recorded Housing 1 03/10/2025 Safety and Environment Answer Date Richy rded Safety 0 07/24/2019 Utilities Answer Date Recorded Utilities 1 03/10/2025 Employment Answer Date Recorded Stress 0 02/18/2022 Sex and Gender Information Value Date Recorded Sex Assigned at Male 09/11/2017 1:35 PM PDT Legal Sex Male 11:36 AM PDT Gender Identity Male 09/11/2017 1:35 PM PDT Sexual Orientation Straight 09/11/2017 1: 35 PM PDT Last Filed Vital Signs Vital Sign Reading Time Taken Comments Blood Pressure 114/80 03/23/2025 2:38 PM EDT Pulse 80 03/23/2025 2:38 PM EDT Temperature 36.6 ??C (97.9 ??F) 02/02/2025 2:43 PM ES T Respiratory Rate 16 03/23/2025 2:38 PM EDT Oxygen Saturation 97% 03/23/2025 2:38 PM EDT Inhaled Oxygen Concentration - - Weight 56.2 kg (124 lb) 03/23/2025 2:38 PM EDT Height 165.1 cm (5' 5 ) 03/23/2025 2:38 PM EDT Body Mass Index 20.63 03/23/2025 2:38 PM EDT Plan of Treatment Upcoming Encounters Date Type Department Care Team (Late st Contact Info) Description 04/19/2025 1:40 PM EDT Office Visit [facility] [address] [place] [phone] Damien Guadalupe, [facility] [address] [place] [address] Health Maintenance Due Date Last Done Comments Anxiety Screening [address] CT Colonography 2007 FIT/gFOBT 2007 Fecal DNA 2007 Flexible Sigmoidoscopy 2007 Imm-Hepatitis B (3 of 3 - 19 + 3-dose series) 07/13/2020 02/09/2020, 01/13/2020 Colonoscopy 03/01/2023 03/01/2013 Colorectal Cancer Screening 03/01/2023 Urine Albumin Creatinine Rat io Screening 12/09/2024 12/09/2023, 08/20/2022, 01/05/2021, Additional history exists Dental Perio Charting 01/22/2025 01/20/2024 , 07/16/2023, 06/26/2022 Retinopathy Screening 01/29/2025 01/30/2024, 024 Diabetes HbA1c 02/15/2025 11/17/2024, 08/01, 04/30/2024, Additional history exists Dental Prophy 04/19/2025 10/18/2024, 01/02, 07/16/2023, Additional history exists Annual Preventive Care Visit 04/30/2025, 03/26/2023, 01/31/2021, Additional history exists Tobacco Screening 04/30/2025 04/30/2024, , 04/04/2023, Additional history exists Dental BW 10/20/2025 10/18/2024, 01/02, 07/16/2023, Additional history exists Dental Examination 10/20/2025 10/18/2024, 0 01/20/2024, 07/16/2023, Additional history exists Lipid Screening 11/17/2025 11/17/2024, 10/31, 03/26/2023, Additional history exists Diabetes Foot Exam 12/24/2025 12/24/2024, 0 03/26/2023, 11/20/2022, Additional history exists Serum Creatinine 01/14/2026 01/14/2025, , 12/04/2024, Additional history exists Imm-DTaP/Tdap/Td (3 - Td or Tdap) 12/13/2027 018, 11/13/2012 Dental FMX/Pano 10/21/2029 10/19/2024 Imm-Zoster, Recombinant Completed 01/13/2020, 07/29 HIV Screening Completed 12/26/2021, 07/29/2019 Imm-Pneumococcal Completed 03/26/2023, 10/21/2019 Hepatitis C Screening Completed 11/17/2023 , 12/26/2021, 09/11/2021, Additional history exists Imm-Influenza Completed 09/10/2024, 10/31, 11/11/2022, Additional history exists Ios-IBVTB-53 Completed 09/17/2024, 10/31, 12/21/2021, Additional history exists Alcohol and Drug Screen Completed 02/03/20 25, 01/28/2024, 03/26/2023, Additional history exists Depression Annual Screen Completed 025, 03/16/2018, 09/11/2017 Goals Goal Patient Goal Type Associated Problems [...] PDT) No Baron Ling PharmD Note: 3x/week Procedures Procedure Name Priority Date/Time Associated Diagnosis Comments REFERRAL SCANNED DOCUMENT 03/25/2025 3:00 AM EDT GLUCOSE, BLOOD BY GLUCOSE MONITORING DEVICE (CLIA WAIVED)POCT Routine 03/23/2025 2:40 PM EDT Type 2 diabetes mellitus with diabetic microalbuminuria, without long-term current use of insulin ([facility]) UPPER GI ENDOSCOPY (EGD) SCANNED DOCUMENT 03/02/2025 3:00 AM EDT REFERRAL SCANNED DOCUMENT 02/18/2025 3:00 AM EDT LAB SCANNED DOCUMENT 02/18/2025 3:00 AM EDT REFERRAL SCANNED DOCUMENT 02/11/2025 3:00 AM EDT REFERRAL SCANNED DOCUMENT 01/14/2025 3:00 AM EST LIPID PANEL Routine 11/17/2024 4:10 PM EST Type 2 diabetes mellitus with hyperglycemia, with long-term current use of insulin ([facility]) Hyperlipidemia LDL goal <100 HEMOGLOBIN GLYCOSYLATED A1C Routine 11/17/2024 4:10 PM EST Type 2 diabetes mellitus with hyperglycemia, with long-term current use of insulin ([facility]) PANORAMIC RADIOGRAPHIC IMAGE Routine 10/19/2024 3:00 PM EST Chronic apical periodontitis BITEWINGS - FOUR RADIOGRAPHIC IMAGES Routine 10/18/2024 11:00 AM EST Defective dental taoist PROPHYLAXIS - ADULT Routine 10/18/2024 1 1:00 AM EST Defective dental taoist PERIODIC ORAL EVALUATION ESTABLISHED PATIENT Routine 10/18/2024 11:00 AM EST Defective dental taoist BASIC METABOLIC PANEL CALCIUM TOTAL Routine 08/18/2024 2:17 PM EDT Type 2 diabetes mellitus with hyperglycemia, with long-term current use of insulin ([facility]) REFERRAL TO DIABETIC RETINAL EXAM Routine 01/30/2024 3:00 AM EST Type 2 diabetes mellitus without complication, without long-term current use of insulin ([facility]) COMP PERIODONTAL EVALUATION - NEW/EST PATIENT Routine 01/20/2024 2:20 PM EST Encounter for dental examination and cleaning with abnormal findings MICROALBUMIN/CREATIN INE RATIO, URINE, RANDOM Routine 12/09/2023 10:05 AM EST Type 2 diabetes mellitus without complication, without long-term current use of insulin ([facility]) ACUTE HEPATITIS PANEL W/RFLX Routine 11/17/2023 9:13 AM EST Elevated liver enzymes HIV 1/2 AG & AB W/RFLX (4TH GEN) Routine 12/26/2021 10:37 AM EST HISTORIC COLONOSCOPY 03/01/2013 3:00 AM EDT from Last 3 Months or Most Recently Relevant to Health Maintenance Results * REFERRAL SCANNED DOCUMENT (03/25/2025 3:00 AM EDT) Only the most recent of4 resultswithin the time period is included. 03/25/2025 3:00 AM EDT us Deneen Beltran PA-C SCAN REFERRAL Final Result * (ABNORMAL) GLUCOSE, BLOOD BY GLUCOSE MONITORING DEVICE (CLIA WAIVED)POCT (03/23/2025 2:40 PM EDT) GLUCOSE 245(A) 70 - 100 mg/dL [facility] POCT Capillary Blood Blood / Unknown 2:40 PM EDT Result [facility] Baron Ling PharmD LAB - BLOOD DRAW Final Re sult [facility] OFF[facility] POCT * UPPER GI ENDOSCOPY (EGD) SCANNED DOCUMENT (03/02/2025 3:00 AM EDT) 03/02/2025 3:00 AM EDT Result [facility] [employer] PA-C SCAN PROCEDURES Final Result * LAB SCANNED DOCUMENT (02/18/2025 3:00 AM EDT) 02/18/2025 3:[address] [facility] Final Result * (ABNORMAL) HEMOGLOBIN GLYCOSYLATED A1C (11/17/2024 4:10 PM EST) HEMOGLOBIN A1C 7.8(H) <5.7 % of total Hgb [facility] Comment: For someone without known diabetes, a hemoglobin A1c value of 6.5% or greater indicates that they may have diabetes and this should be confirmed with a follow-up test. For someone with known diabetes, a value <7% indicates that their diabetes is well controlled and a value greater than or equal to 7% indicates suboptimal control. A1c targets should be individualized based on duration of diabetes, age, comorbid conditions, and other considerations. Currently, no consensus exists regarding use of hemoglobin A1c for diagnosis of diabetes for children. ?? Blood Blood / Unknown 11/17/2024 4 :10 PM EST 11/17/2024 4:11 PM EST Narrative [facility] - 11/18/2024 4:35 AM EST FASTING:YES us Baron Ling PharmD LAB - BLOOD DRAW Edited R esult - Final Performing Organization Address [facility] Co de Phone Number [employer] [address] [address], [employer] [address] [phone] * LIPID PANEL (11/17/2024 4:10 PM EST) [facility] Signature CHOLESTEROL, TOTAL 161 <200 mg/dL [employer] [facility] HDL CHOLESTEROL 50 > OR = 40 mg/dL [employer] [facility] TRIGLYCERIDES 94 <150 mg/dL [employer] [facility] LDL-CHOLESTEROL 92 99 mg/dL (calc) [employer] [facility] Comment: Reference range: <100 Desirable range <100 mg/dL for primary prevention; ?? <70 mg/dL for patients with CHD or diabetic patients with > or = 2 CHD risk factors. LDL-C is now calculated using the Kaleb-Beverley calculation, which is a validated novel method providing better accuracy than the Friedewald equation in the estimation of LDL-C. Kaleb SS et al. RUBY. 2013;310(19): 4141-6165 (http://education.Dashbid/faq/FPY458) CHOL/HDLC RATIO 3.2 <5.0 (calc) [facility] NON-HDL CHOLESTEROL 111 <130 mg/dL (calc) [facility] Comment: For patients with diabetes plus 1 major ASCVD risk factor, treating to a non-HDL-C goal of <100 mg/dL (LDL-C of <70 mg/dL) is considered a therapeutic option. Blood Blood / Unknown 11/17/2024 4 :10 PM EST 11/17/2024 4:11 PM EST Narrative [facility] - 11/18/2024 4:35 AM EST FASTING:YES us Baron Ling PharmD LAB - BLOOD DRAW Final Re sult Performing Organization Address [facility] Co de Phone Number [facility] [employer] [facility] [address] [address], [facility] [employer] [address] [address] * (ABNORMAL) BASIC METABOLIC PANEL CALCIUM TOTAL (08/18/2024 2:17 PM EDT) GLUCOSE 183(H) 65 - 139 mg/dL [facility] Comment: ?Non-fasting reference interval UREA NITROGEN (BUN) 17 7 - 25 mg/dL [facility] CREATININE (blood) 1.20 0.70 - 1.35 mg/dL [facility] EGFR 68 > OR = 60 mL/min/1. 73m2 [facility] BUN/CREATININE RATIO SEE NOTE: [place] [employer] [facility] Comment: ?? Not Reported: BUN and Creatinine are within ?? reference range. ? SODIUM 136 135 - 146 mmol/L [facility] [employer] [facility] POTASSIUM 5.0 3.5 - 5.3 mmol/L [facility] CHLORIDE 103 98 - 110 mmol/L [facility] CARBON DIOXIDE 29 20 - 32 mmol/L [facility] CALCIUM 9.5 8.6 - 10.3 mg/dL [facility] Blood Blood / Unknown 08/18/2024 2 :17 PM EDT 08/18/2024 2:17 PM EDT Narrative [employer] - 08/19/2024 5:38 AM EDT FASTING:NO Baron Ling PharmD LAB - BLOOD DRAW Edited R esult - Final [facility] [address] [address], [facility] [employer] [address] [address] * REFERRAL TO DIABETIC RETINAL EXAM (01/30/2024 3:00 AM EST) 01/30/2024 3:00 AM EST Deneen Beltran PA-C REFERRAL Final Result * (ABNORMAL) MICROALBUMIN/CREATININE RATIO, URINE, RANDOM (12/09/2023 10:05 AM EST) CREATININE, RANDOM URINE 143 20 - 320 mg/dL [facility] MICROALBUMIN 28.4 mg/dL [facility] Comment: Reference Range Not established MICROALBUMIN/CREA TININE RATIO, RANDOM URINE 199(H) <30 mcg/mg creat [facility] Comment: The ADA defines abnormalities in albumin excretion as follows: Albuminuria Category ?Result (mcg/mg creatinine) Normal to Mildly increased ?? <30 Moderately increased ? 30-299 Severely increased ? > OR = 300 The ADA recommends that at least two of three specimens collected within a 3-6 month period be abnormal before considering a patient to be within a diagnostic category. Urine Urine specimen / Unknown 12/09/2023 10:05 AM EST 12/09/2023 10:05 AM EST Baron Ling PharmD LAB - NO BLOOD DRAW Final Result [facility] [address] [address], [facility] [employer] [address] [address] * ACUTE HEPATITIS PANEL W/RFLX (11/17/2023 9:13 AM EST) [facility] HEPATITIS B SURFACE ANTIGEN NON-REACT CARISSA NON-REACT CARISSA [facility] COMMENT [facility] HEPATITIS A IGM ANTIBODY NON-REACT CARISSA NON-REACT CARISSA [facility] COMMENT [facility] [employer] [facility] HEPATITIS B CORE IGM ANTIBODY NON-REACT CARISSA NON-REACT CARISSA [facility] COMMENT [facility] HEPATITIS C ANTIBODY NON-REACT CARISSA NON-REACT CARISSA [facility] Comment: HCV antibody was non-reactive. There is no laboratory evidence of HCV infection. In most cases, no further action is required. However, if recent HCV exposure is suspected, a test for HCV RNA (test code 77533) is suggested. For additional information please refer to http://education.APE Systems/faq/UTY57m7 (This link is being provided for informational/ educational purposes only.) Blood Blood / Unknown 11/17/2023 9 :13 AM EST 11/17/2023 9:13 AM EST Narrative [facility] - 11/18/2023 7:51 AM EST For additional information, please refer to http://[employer].APE Systems/faq/TTH661 (This link is being provided for informational/ educational purposes only.) For additional information, please refer to http://[employer].APE Systems/faq/PXB888 (This link is being provided for informational/ educational purposes only.) For additional information, please refer to http://[employer].APE Systems/faq/DXT561 (This link is being provided for informational/ educational purposes only.) us Deneen Beltran PA-C LAB - BLOOD DRAW Final Resul t [facility] [address] [address], [facility] [employer] [address] [address] * HIV 1/2 AG & AB W/RFLX (4TH GEN) (12/26/2021 10:37 AM EST) Pathologist [facility] HIV AG/AB, 4TH GEN NON-REAC TIVE NON-REAC TIVE [facility] Comment: HIV-1 antigen and HIV-1/HIV-2 antibodies were not detected. There is no laboratory evidence of HIV infection. PLEASE NOTE: This information has been disclosed to you from records whose confidentiality may be protected by state law. ??If your state requires such protection, then the state law prohibits you from making any further disclosure of the information without the specific written consent of the person to whom it pertains, or as otherwise permitted by law. A general authorization for the release of medical or other information is NOT sufficient for this purpose. ?? For additional information please refer to http://[employer].APE Systems/faq/HAY101 (This link is being provided for informational/ educational purposes only.) The performance of this assay has not been clinically validated in patients less than 2 years old. 12/26/2021 10:3 7 AM EST 12/26/2021 10:39 AM EST Narrative [facility] - 12/27/2021 12:25 AM EST FASTING:NO PATIENT UNABLE TO VOID; ADVISED TO RETURN FOR COLLECTION. us Keely Smiley PA-C LAB - BLOOD DRAW Final Resul t [facility] [address] [address], [facility] [address] [address] * HISTORIC COLONOSCOPY (03/01/2013 3:00 AM EDT) 03/01/2013 3:00 AM EDT Mere Watson MD PROCEDURES Final Resu lt from Last 3 Months or Most Recently Relevant to Health Maintenance Insurance [place] [address] [employer] Care Teams Personal Lines Insurance Advisor Relationship Specialty Start Date End Date Deneen Beltran PA-C [address] [place] [address] PCP - General Internal Medicine 11/03/23
== END 2025-04-04 13:26 | disposition home or self-care (01) ==
LOC: HO.HGI 12:23
PROVIDERS: PCP Physician Assistant; Visit Provider Internal Medicine
DX: R10.9 Unspecified abdominal pain (principal); C78.7 Secondary malignant neoplasm of liver and intrahepatic bile duct; C25.9 Malignant neoplasm of pancreas, unspecified; D64.9 Anemia, unspecified
CPT/HCPCS: 99213

== ENCOUNTER → 2025-04-04 12:22 | Outpatient (BNVA) | payer MEDICAID, SELFPAY | PROVIDERS: PCP Physician Assistant; Visit Provider Internal Medicine | DX: R10.9 Unspecified abdominal pain (principal); C78.7 Secondary malignant neoplasm of liver and intrahepatic bile duct; C25.9 Malignant neoplasm of pancreas, unspecified; D64.9 Anemia, unspecified | CPT/HCPCS: 99212 ==

== ENCOUNTER 2025-05-20 14:43 | Outpatient (AMB) | payer MEDICAID, SELFPAY ==
--- NOTE | 2025-05-20 14:49 | AM.OFFVISNUR ---
Intake Visit Reasons: h pylori Allergies No Known Allergies Allergy (Verified 04/04/25 12:31) Nursing Note Patient presents for collection of H Pylori breath test. Patient has been fasting for 1 hour (nothing to eat, drink, no chewing gum or smoking) has not taken any antacid medication for at least 2 weeks and has no allergies to artificial sweeteners.?? Assessment & Plan Assessment & Plan (1) Abdominal pain: Code(s): R10.9 - Unspecified abdominal pain Category: Medical Plan Patient presents for collection of H Pylori breath test. Patient has been fasting for 1 hour (nothing to eat, drink, no chewing gum or smoking) has not taken any antacid medication for at least 2 weeks and has no allergies to artificial sweeteners.???This test checks for an overgrowth of bacteria in your stomach. We all have bacteria but some may have more than others. It is treatable. if the test comes back negative there is nothing else to do. If the test result is positive we will treat you with 2 antibiotics and a medication to decrease the acid in your stomach (PPI) for 2 weeks. Two weeks after you have completed the treatment we will retest you to make sure the overgrowth has resolved. Orders: Orders H Pylori Breath Test Today Patient Instructions: Process for specimen collection and reason for testing was explained to the patient. Specimen collection. Patient instructed to take a deep breath and then exhale into the blue bag, filling it up as much as possible. Patient instructed to drink a mixture of water and the artificial sweetener with a straw. A 15 minute wait period was observed. Patient instructed to take a deep breath and then exhale into the pink bag, filling it up as much as possible.? Coding Level of Care Code Established Pt Est Pt Level 1 (50895) Patient Type Established Medical Decision Making Straight Forward Diagnoses Abdominal pain R10.9
== END 2025-05-20 14:51 | disposition home or self-care (01) ==
LOC: HO.HGI 14:44
PROVIDERS: PCP Physician Assistant; Visit Provider Internal Medicine
DX: R10.9 Unspecified abdominal pain (principal)

== ENCOUNTER → 2025-05-20 14:43 | Outpatient (BNVA) | payer MEDICAID, SELFPAY | PROVIDERS: PCP Physician Assistant; Visit Provider Internal Medicine | DX: R10.9 Unspecified abdominal pain (principal); Z11.0 Encounter for screening for intestinal infectious diseases | CPT/HCPCS: 99211 ==

== ENCOUNTER 2025-05-20 15:49 | Outpatient (REF) | payer MEDICAID, SELFPAY ==
[2025-05-21 11:29] LABS: H Pylori Breath Test Negative (Negative)
== END 2025-05-20 15:50 | disposition home or self-care (01) ==
LOC: HO.LNP 15:49
PROVIDERS: Visit Provider Internal Medicine
DX: Z11.0 Encounter for screening for intestinal infectious diseases (principal)
CPT/HCPCS: 83013